=== PATIENT | female | born 1990 | race Caucasian/White ===

== ENCOUNTER 2020-01-11 02:16 | Inpatient (IN) | payer OTHER ==
--- OUTSIDE RECORDS SUMMARY | 2020-01-11 02:18 | XMS REPORT | Summary of Care ---
:1990 Author Organization [facility] Address [address] [place] [address] Care Team Providers Name Role Phone Doctor Unassigned, [place] Medicaid Hmo Unavailable Song Cacereschaden Mfm Unavailable Unavailable Cisco IzquierdoP Unavailable Encounter Details Date Type Department Care Team Description 06/02/2019 Orders Only [facility] Doctor Unassigned, No [address] [facility] Name [address] [address] Allergies No Known Allergiesdocumented as of this encounter (statuses as of 06/02/2019) Medications Medication Sig Dispensed Refills Start Date End Date Status hydroxyprogesterone Weekly IM inj 1 mL 0 12/16/2016 Active caproate, ppres, 250 starting at 16 mg/mL injection wk gestation proMETHazine 25 mg Take 1 tablet 12 tablet 0 05/07/2017 Active tabletIndications: High by mouth every risk , 6 (six) hours antepartum as needed for Nausea and Vomiting (N/V). proMETHazine 25 mg tablet Take 1 tablet 60 tablet 1 05/07/2017 Active by mouth every 4 (four) hours as needed (nausea). [id number] Take 2 tablets 60 Each 11 05/07/2017 Active carb,gnt-SK-ruu-dha by mouth daily. (CITRANATAL ASSURE) 35 mg Please fill iron-1 mg -50 mg-300 mg with similar combo packIndications: vitamin covered High risk , by patient's antepartum insurance. documented as of this encounter (statuses as of 06/02/2019) Active Problems Problem Noted Date Rh negative state in antepartum period 12/11/2016 High risk , antepartum 12/10/2016 Current with history of labor, second trimester 12/10/2016 Rh negative state in antepartum period, first trimester 12/10/2016 H/O cervical incompetence 12/10/2016 Recurrent loss, 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 History of anemia 10/30/2016 History of PID 10/30/2016 documented as of this encounter (statuses as of 06/02/2019) Resolved Problems Problem Noted Date Resolved Date Well woman exam with routine gynecological exam 10/30/2016 12/10/2016 Screening for STD (sexually transmitted disease) 10/30/2016 12/10/2016 Other general counseling and advice for contraceptive 10/30/2016 12/10/2016 management Threatened in early 07/18/2015 10/30/2016 Unsure of last menstrual period as reason for ultrasound 07/18/20152016 scan History of cervical incompetence in , currently 07/18/20152016 , first trimester Rh negative state in antepartum period, first trimester, 07/18/20152016 fetus 1 with other poor reproductive history 04/27/2014 10/30/2016 High-risk 04/27/2014 10/30/2016 History of delivery, currently 03/14/2014 10/30/2016 Overview: Delivered at 21 weeks Rh negative status during , antepartum 03/01/2014 07/18/2015 documented as of this encounter (statuses as of 06/02/2019) Immunizations Name Administration Dates Next Due Rho (d) Immune Globulin 05/28/2017 Td 04/18/2010 documented as of this encounter Social History Tobacco Use Types Packs/Day Years Used Date Former Smoker Cigarettes 0.1 1 Quit: 02/24/2014 Smokeless Tobacco: Never Used Comments: smokes 5 cigarettes per week Alcohol Use Drinks/Week oz/Week Comments No 0 Standard drinks or equivalent 0.0 Sex Assigned at Date Recorded Not on file Job Start Date Occupation Industry Not on file Not on file Not on file Travel History Travel Start Travel End No recent travel history available. documented as of this encounter Last Filed Vital Signs Not on filedocumented in this encounter Plan of Treatment Date Type Specialty Care Team Description 06/02/2019 Initial Visit OB Satellites Lamar Barry, STEREOPTIC PROJECTION TOPOGRAPHER [address] [place] [address] [phone] Health Maintenance Due Date Last Done Comments VARICELLA VACCINES (1 of 2 2001 - 13+ 2-dose series) DTaP,Tdap,and Td Vaccines 04/19/2010 04/18/2010 (1 - Tdap) INFLUENZA VACCINE (#1) 2019 PAP SMEAR 12/10/2019 12/10/2016, 12/28/2013, 10/03/2010, Additional history exists PNEUMOCOCCAL 0-64 YEARS Aged Out No longer eligible COMBINED SERIES based on patient's age to complete this topic documented as of this encounter Procedures Procedure Name Priority Date/Time Associated Diagnosis Comments ASSIGNMENT OF BENEFITS Routine 06/02/2019 8:50 AM CDT documented in this encounter Results Not on filedocumented in this encounter Advance Directives Name Relationship Healthcare Agent Relationship Communication Wan Héctor Garcia Primary healthcare agent Devonte Eng Other First alternate healthcare [phone] agent (Mobile)
--- OUTSIDE RECORDS SUMMARY | 2020-01-11 02:18 | XMS REPORT ---
:1990 Author Organization [facility] Address [address] [place] [address] Dr. Self. [address] [place] [address] Care Team Providers Name Role Phone Unavailable Unavailable Unavailable Problems This patient has no known problems. Allergies, Adverse Reactions, Alerts This patient has no known allergies or adverse reactions. Medications This patient has no known medications.
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
--- OUTSIDE RECORDS SUMMARY | 2020-01-11 02:19 | XMS REPORT | Summary of Care ---
:1990 Author Organization [facility] Address [address] [place] [address] Care Team Providers Name Role Phone Doctor Unassigned, [place] Medicaid Hmo Unavailable Faculty, Song [place] [facility] Unavailable Unavailable Cisco Izquierdo TRANSPORTATION ESCORT Unavailable Lamar Barry TRANSPORTATION ESCORT Primary Care Provider Reason for Referral (Routine) Status Reason Specialty Diagnoses / Referred By Referred To Procedures Contact Contact New Request Maternal Diagnoses High risk , antepartum Lamar Barry Procedures CONSULT MATERNAL MEDICINE ULTRASOUND Preferred Location: GRICEL Benavidez [address] [place] [address] Reason for Visit Reason Comments Assessment nausea and vomit Referral/consult referral for usg Encounter Details Date Type Department Care Team Description 06/09/2019 Telephone [facility]- Lamar Barry, Assessment ( nausea and Sasha COLONP vomit); [address] Referral/consult [place], [place] (referral for usg) [id number] [place], [place] [id number] Allergies No Known Allergiesdocumented as of this encounter (statuses as of 06/09/2019) Medications Medication Sig Dispensed Refills Start Date End Date Status proMETHazine 25 mg Take 1 tablet 30 tablet 3 06/09/2019 Active tabletIndications: by mouth every Nausea/vomiting in 4 (four) hours as needed for Nausea and Vomiting (N/V). PNV 67-iron Take 1 capsule 30 capsule 11 06/09/2019 Active ps-folate no.1-dha by mouth (VITAFOL ULTRA) 29 daily. mg iron- 1 mg-200 mg CapIndications: High risk , antepartum vit Take by 0 06/09/2019 Discontinued calc,iron,folic mouth. ( VITAMIN ORAL) documented as of this encounter (statuses as of 06/09/2019) Active Problems Problem Noted Date History of [...] as of this encounter (statuses as of 06/09/2019) Resolved Problems Problem Noted Date Resolved Date [...] as of this encounter (statuses as of 06/09/2019) Immunizations Name Administration Dates Next Due Rho (d) Immune Globulin 05/28/2017 Td 04/18/2010 documented as of this encounter Social History Tobacco Use Types Packs/Day Years Used Date Former Smoker Cigarettes 0.1 1 Quit: 02/24/2014 Smokeless Tobacco: Never Used Alcohol Use Drinks/Week oz/Week Comments No 0 [...] 06/30/2019 Routine Visit OB Satellites Lamar Barry, TRANSPORTATION ESCORT [address] [place] [address] [phone] Health Maintenance Due Date Last Done Comments INFLUENZA VACCINE (#1) 2019 DTaP,Tdap,and Td Vaccines 09/23/2019 04/18/2010 Postponed from (1 - Tdap) 04/19/2010 ( or ) PAP SMEAR 06/02/2022 06/02/2019, 12/10/2016, 12/28/2013, Additional history exists PNEUMOCOCCAL 0-64 YEARS Aged Out No longer eligible COMBINED SERIES based on patient's age to complete this topic documented as of this encounter Results Not on filedocumented in this encounter Visit Diagnoses Diagnosis High risk , antepartum - Primary Nausea/vomiting in Unspecified vomiting of , unspecified as to episode of care documented in this encounter Insurance Payer Benefit Plan / Subscriber ID Effective Dates Phone Address Type Group TMHP MEDICAID OF xxxxxxxxx 2019-Present [phone] [place] [address] [place] [address] documented as of this encounter Advance Directives Name Relationship Healthcare Agent Relationship Communication Wan Anaya Father Primary healthcare agent Devonte Eng Other [employer] alternate healthcare [phone] agent (Mobile)
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
--- OUTSIDE RECORDS SUMMARY | 2020-01-11 02:20 | XMS REPORT | Summary of Care ---
:1990 Author Organization [facility] Address [address] [place] [address] Care Team Providers Name Role Phone Doctor Unassigned, [employer] Medicaid Hmo Unavailable Faculty, Song [facility] [employer] Unavailable Unavailable Cisco Izquierdo BUFFET WAITER/WAITRESS Unavailable Lamar Barry BUFFET WAITER/WAITRESS Primary Care Provider Encounter Details Date Type Department Care Team Description 06/29/2019 Orders Only [facility] Doctor Unassigned, No [address] [facility] [place] [address] [address] [place] [address] Allergies No Known Allergiesdocumented as of this encounter (statuses as of 06/29/2019) Medications Medication Sig Dispensed Refills Start Date End Date Status proMETHazine 25 mg Take 1 tablet by 30 tablet 3 06/09/2019 Active tabletIndications: mouth every 4 Nausea/vomiting in (four) hours as needed for Nausea and Vomiting (N/V). PNV 67-iron ps-folate Take 1 capsule by 30 capsule 11 06/09/2019 Active no.1-dha (VITAFOL mouth daily. ULTRA) 29 mg iron- 1 mg-200 mg CapIndications: High risk , antepartum documented as of this encounter (statuses as of 06/29/2019) Active Problems Problem Noted Date History of [...] as of this encounter (statuses as of 06/29/2019) Resolved Problems Problem Noted Date Resolved Date [...] as of this encounter (statuses as of 06/29/2019) Immunizations Name Administration Dates Next Due Rho [...] 06/30/2019 Routine Visit OB Satellites Lamar Barry, BUFFET WAITER/WAITRESS [address] [place], [place] [address] Health Maintenance Due Date Last Done Comments [...] Procedure Name Priority Date/Time Associated Diagnosis Comments CONSENT/REFUSAL FOR Routine 06/29/2019 9:06 AM CDT DIAGNOSIS AND TREATMENT documented in this encounter Results Not on filedocumented in this encounter Insurance Payer Benefit Plan / Subscriber ID Effective Dates Phone Address Type Group TMHP MEDICAID OF xxxxxxxxx 2019-Present [phone] Medicaid [place] [id number] [place] [phone] documented as of this encounter Advance Directives Name Relationship Healthcare Agent Relationship Communication Wan Garcia Primary healthcare agent
--- OUTSIDE RECORDS SUMMARY | 2020-01-11 02:20 | XMS REPORT | Summary of Care ---
:1990 Author Organization [facility] Address [address] [place] [address] Care Team Providers Name Role Phone Doctor Unassigned, [place] Medicaid Hmo Unavailable Faculty, Song Rmchp Mfm Unavailable Unavailable Cisco Izquierdo CROP RESEARCH SCIENTIST Unavailable Lamar Barry CROP RESEARCH SCIENTIST Primary Care Provider Reason for Referral Radiology Services (OLI) Status Reason Specialty Diagnoses / Referred By Referred To Procedures Contact Contact New Request Diagnostic Diagnoses Abdominal pain affecting Geoffrey Goddard Radiology Procedures US TRANSVAGINAL III, PA [address] [place] [address] [place] [address] Radiology Services (OLI) Status Reason Specialty Diagnoses / Referred By Referred To Procedures Contact Contact New Request Diagnostic Diagnoses Abdominal pain affecting Geoffrey Goddard Radiology Procedures US TRANSVAGINAL III, PA [address] [place] [address] [place] [address] Reason for Visit Reason Comments CRAMPING Auth/Cert Status Reason Specialty Diagnoses / Referred By Referred To Procedures Contact Contact [facility] [address] [place] [address] [place] [address] Encounter Details Date Type Department Care Team Description 06/17/2019 Emergency [facility]-Emergency Rupesh, Geoffrey A III, Abdominal pain affecting (Primary Dx); Department PA Urinary tract infection without hematuria, site unspecified [address] [facility] [address] [place] [address] [facility] [place] [id number] Allergies No Known Allergiesdocumented as of this encounter (statuses as of 06/17/2019) Medications Medication Sig Dispensed Refills Start Date End Date Status proMETHazine 25 mg Take 1 tablet by 30 tablet 3 06/09/2019 Active tabletIndications: mouth every 4 Nausea/vomiting in (four) hours as needed for Nausea and Vomiting (N/V). PNV 67-iron ps-folate Take 1 capsule 30 capsule 11 06/09/2019 Active no.1-dha (VITAFOL by mouth daily. ULTRA) 29 mg iron- 1 mg-200 mg CapIndications: High risk , antepartum amoxicillin 500 mg Take 1 tablet by 30 tablet 0 06/17/2019 06/27/2019 Active tabletIndications: mouth 3 (three) Abdominal pain times daily for affecting , 10 days. Urinary tract infection without hematuria, site unspecified documented as of this encounter (statuses as of 06/17/2019) Active Problems Problem Noted Date History of [...] as of this encounter (statuses as of 06/17/2019) Resolved Problems Problem Noted Date Resolved Date [...] as of this encounter (statuses as of 06/17/2019) Immunizations Name Administration Dates Next Due Rho [...] Sign Reading Time Taken Comments Blood Pressure 110/65 06/17/2019 9:44 PM CDT Pulse 80 06/17/2019 9:44 PM CDT Temperature 37 C (98.6 F) 06/17/2019 9:44 PM CDT Respiratory Rate 16 06/17/2019 9:44 PM CDT Oxygen Saturation 98% 06/17/2019 9:44 PM CDT Inhaled Oxygen Concentration - - Weight 68 kg (150 lb) 06/17/2019 7:34 PM CDT Height - - Body Mass Index 24.96 06/02/2019 9:38 AM CDT documented in this encounter Discharge Instructions Geoffrey Cole III, PA - 06/17/2019 @@@@@@@@@@@@@@@@@@@@@@@@@@@@@@@@@@@@@@@@@@@@@@@@@@@@@ [facility] RETURN TO WORK / SCHOOL EXCUSE Bettye Anaya WAS SEEN IN THE ER AND DISCHARGED 06/17/2019 TODAY, 9:27 PM & May return to Work / School / Incarceration on 06/18/19 with No limitations unless indicated below. ___The following limitations apply until pt is seen by Physician and cleared to return to normal activity. ___ Light duty ___ No Sports ___ No work ___ Do not return until fever free for 24 hours. ___ No school Ed Rupesh [facility] [address] [place] [address] [place] [address] If you are unprepared to return to work tomorrow due to pain please give this note to your employer and make a follow up appointment with your MD for further evaluation and limitations. ### The patient may have been given Narcotic pain medications during their stay in the ED that may show up on a Drug Screen. The hospital discharge paper work will identify these medications. @@@@@@@@@@@@@@@@@@@@@@@@@@@@@@@@@@@@@@@@@@@@@@@@@@@@@ Thank you for trusting us with your care. The emergency room is the first stop in the medical management of your complaint . Our primary pupose is to identify life threatening emergancies and to rapidly address those issues. We are releasing you today after evaluation for emergency or life threatening problems related to your complaint. At this time we are comfortable that your condition is stable enough to go home, take oral medications and follow up for further care. If you can't afford a doctor OR MEDICATIONS consider [facility] [place], [address] [place] [address]; [phone] Medications [employer] WILL SHOW YOU WHERE YOU CAN GET YOUR MEDICATIONS CHEAPEST. 1. Call your doctor and let them know you were seen for ICD-10-CM ICD-9-CM 1. Abdominal pain affecting O26.899 646.80 R10.9 789.00 2. Urinary tract infection without hematuria, site unspecified N39.0 599.0 2. Schedule a follow up within 3 days of your ER visit. 3. Take your prescriptions to the pharmacy and get them filled today. 4. Take the medications as prescribed and until completed. 5. You have been referred for further care 6. You may need additional tests Your doctors will help you figure out what you need and how to get them done. 7. Please read all paperwork provided to you. Additional instructions See Attached AttachmentsThe following attachments cannot be sent through Care Everywhere.Urinary Tract Infections in Women (Chilean)documented in this encounter Plan of Treatment Date Type Specialty Care Team Description 06/27/2019 Healthcare Economics Consultant Visit Maternal Ansley, Shirley Matson MD [address] [facility] [id number] [place], [place] [id number] Medicine 5, [facility] Usg Room 06/30/2019 Routine Visit OB Satellites Lamar Barry, CROP RESEARCH SCIENTIST [address] [place] [address] [phone] Name Type Priority Associated Diagnoses Date/Time TOTAL BETA HCG ASSAY LAB STAT Abdominal pain affecting 06/17/2019 8:32 PM CDT Type and Screen - ONCE LAB STAT Abdominal pain affecting 06/17/2019 8:32 PM CDT STAT Name Type Priority Associated Diagnoses Order Schedule TOTAL BETA HCG ASSAY LAB STAT Abdominal pain affecting STAT for 1 Occurrences starting 06/17/2019 until 06/17/2019, 1 completed Health Maintenance Due Date Last Done Comments [...] Procedure Name Priority Date/Time Associated Comments Diagnosis CBC WITH DIFFERENTIAL STAT 06/17/2019 8:32 Abdominal pain Results for this PM CDT affecting procedure are in the results section. TYPE AND SCREEN STAT 06/17/2019 8:32 Abdominal pain PM CDT affecting URINALYSIS STAT 06/17/2019 8:32 Abdominal pain Results for this PM CDT affecting procedure are in the results section. CBC WITH DIFF Routine 06/17/2019 8:32 Abdominal pain Results for this PM CDT affecting procedure are in the results section. COMP. METABOLIC PANEL STAT 06/17/2019 8:32 Abdominal pain Results for this (33598) PM CDT affecting procedure are in the results section. US TRANSVAGINAL OLI 06/17/2019 8:27 Abdominal pain Results for this PM CDT affecting procedure are in the results section. NOTICE OF PRIVACY Routine 06/17/2019 7:18 PRACTICES PM CDT CONSENT/REFUSAL FOR Routine 06/17/2019 7:18 DIAGNOSIS AND PM CDT TREATMENT documented in this encounter Results CBC WITH DIFFERENTIAL (06/17/2019 8:32 PM CDT) WBC 9.06 4.30 - 11.10 [facility] 10*3/L HOSPITAL LABORATORY RBC 3.96 3.93 - 5.25 [facility] 10*6/L [facility] HGB 12.6 11.6 - 15.0 g/dL [facility] HCT 36.2 35.7 - 45.2 % [facility] MCV 91.4 80.6 - 95.5 fL [facility] MCH 31.8 25.9 - 32.8 pg [facility] MCHC 34.8 31.6 - 35.1 g/dL [facility] RDW-SD 41.2 39.0 - 49.9 fL [facility] RDW-CV 12.3 12.0 - 15.5 % [facility] PLT 220 166 - 358 [facility] 10*3/L HOSPITAL [facility] MPV 11.5 9.5 - 12.9 fL [facility] NRBC/100 WBC 0.0 0.0 - 10.0 /100 [facility] WBCs HOSPITAL LAB[facility]ORY NRBC x10^3 <0.01 10*3/L [facility] GRAN MAT (NEUT) % 67.6 % [facility] IMM GRAN % 0.30 % [facility] LYMPH % 22.6 % [facility] MONO % 7.5 % [facility] EOS % 1.4 % [facility] BASO % 0.6 % [facility] GRAN MAT x10^3(ANC) 6.12 1.88 - 7.09 [facility] 10*3/uL HOSPITAL LAB[facility]ORY IMM GRAN x10^3 0.03 0.00 - 0.06 [facility] 10*3/uL HOS[facility]ITAL [facility] LYMPH x10^3 2.05 1.32 - 3.29 [facility] 10*3/uL [facility]ITAL [facility] MONO x10^3 0.68 0.33 - 0.92 [facility] 10*3/uL H[facility]ITAL [facility] EOS x10^3 0.13 0.03 - 0.39 [facility] 10*3/uL [facility] BASO x10^3 0.05 0.01 - 0.07 [facility] 10*3/uL HOSPITAL LAB[facility]ORY Specimen Blood - ARM, RIGHT Performing Organization Address City/State/Zipcode Phone Number [facility] CLIA: [id number], [address] [place] [address] URINALYSIS (06/17/2019 8:32 PM CDT) APPEARANCE Clear Clear [facility] COLOR Yellow Yellow [facility] PH 7.0 4.8 - 8.0 [facility] SP GRAVITY 1.010 1.003 - 1.030 [facility] GLU U QUAL Negative Negative [facility] BLOOD Negative Negative [facility] KETONES Negative Negative [facility] PROTEIN Negative Negative [facility] UROBILIN 0.2 mg/dL 0-1.0 mg/dL [facility] BILIRUBIN Negative Negative [facility] NITRITE Negative Negative [facility] LEUK PEDRO Trace (A) Negative [facility] RBC/HPF 0 0 - 3 HPF [facility] WBC/HPF 2 0 - 5 HPF [facility] BACTERIA Moderate (A) Negative [facility] AMORPHOUS 3+ HPF [facility] SQ EPITH 8 HPF [facility] Specimen Urine - URINE, CLEAN CATCH Performing Organization Address City/State/Zipcode Phone Number [facility] CLIA: [id number], [address] [place] [address] COMP. METABOLIC PANEL ([id number]) (06/17/2019 8:32 PM CDT) NA 140 135 - 145 mmol/L [facility] K 3.6 3.5 - 5.0 mmol/L [facility] CL 104 98 - 108 mmol/L [facility] CO2 TOTAL 24 23 - 31 mmol/L [facility] AGAP 12 2 - 16 [facility] BUN 8 7 - 23 mg/dL [facility] GLUCOSE 78 70 - 110 mg/dL [facility] CREATININE 0.61 0.50 - 1.04 [facility] mg/dL [facility] TOTAL BILI 0.1 0.1 - 1.1 mg/dL [facility] CALCIUM 9.4 8.6 - 10.6 mg/dL [facility] T PROTEIN 7.5 6.3 - 8.2 g/dL [facility] ALBUMIN 4.5 3.5 - 5.0 g/dL [facility] ALK PHOS 51 34 - 122 U/L [facility] ALT(SGPT) 6 (L) 9 - 51 U/L [facility] AST(SGOT) 18 13 - 40 U/L [facility] eGFR Calculation 115.2 mL/min/1.73m2 [facility] (Non-) [facility] eGFR Calculation 139.6 mL/min/1.73m2 [facility] () [facility] Specimen Blood - ARM, RIGHT Narrative Performed At Association of Glomerular Filtration Rate (GFR) [facility] and Staging of Kidney Disease* + + +- + | GFR (mL/min/1.73 m2)| With Kidney Damage|Without Kidney Damage + + +- + |>90| Stage one| Normal + + +- + |60-89|S tage two| Decreased GFR + + +- + |30-59|S tage three| Stage three + + +- + |15-29|S tage four | Stage four + + +- + |<15 (or dialysis)|Stage five | Stage five + + +- + *Each stage assumes the associated GFR level has been in effect for at least three months.Stages 1 to 5, with or without kidney disease, indicate chronic kidney disease. Notes: Determination of stages one and two (with eGFR >59mL/min/1.73 m2) requires estimation of kidney damage for at least three months as defined by structural or functional abnormalities of the kidney, manifested by either: Pathological abnormalities or Markers of kidney damage (including abnormalities in the composition of the blood or urine or abnormalities in imaging tests). Performing Organization Address City/State/Zipcode Phone Number [facility] CLIA: [id number], [address] [place] [address] [facility] [address] US TRANSVAGINAL (06/17/2019 8:27 PM CDT) Specimen Impressions Performed At PACS/VR/DOSE Live intrauterine corresponding to a gestational age of 8 weeks and 4 days. IHyacinth MD., have reviewed this study and agree with the above report. Narrative Performed At EXAM: US TRANSVAGINAL PACS/VR/DOSE HISTORY:28 years-old Female presenting with suspected ectopic Beta-hcg: Pending LMP: 04/18/2019 Reproductive history: A0 COMPARISON:None. TECHNIQUE/FINDINGS: Transvaginal pelvic ultrasound was performed. The uterus is normal in size at 9.3 x 6.4 x 7.9 cm with normal echotexture and contains a normal gestational sac. A live intrauterine was demonstrated with a crown rump length of 1.9 cm corresponding to a gestational age of 8 weeks and 4 days. Doppler studies demonstrated evidence of heart tones with measured heart rate of 170 BPM. The yolk sac is present measuring 0.3 cm. Trace free fluid is present within the pelvis. The bilateral ovaries are normal with the right ovary measuring 2.9 x 2.5 x 2.1 cm (8 mL) and the left ovary measuring 2.5 x 1.9 x 1.3 cm (3 mL). Procedure Note [facility], Radiant Results Inft User - 06/17/2019 9:43 PM CDT EXAM: US TRANSVAGINAL HISTORY: 28 years-old Female presenting with suspected ectopic Beta-hcg: Pending LMP: 04/18/2019 Reproductive history: A0 COMPARISON: None. TECHNIQUE/FINDINGS: Transvaginal pelvic ultrasound was performed. The uterus is normal in size at 9.3 x 6.4 x 7.9 cm with normal echotexture and contains a normal gestational sac. A live intrauterine was demonstrated with a crown rump length of 1.9 cm corresponding to a gestational age of 8 weeks and 4 days. Doppler studies demonstrated evidence of heart tones with measured heart rate of 170 BPM. The yolk sac is present measuring 0.3 cm. Trace free fluid is present within the pelvis. The bilateral ovaries are normal with the right ovary measuring 2.9 x 2.5 x 2.1 cm (8 mL) and the left ovary measuring 2.5 x 1.9 x 1.3 cm (3 mL). IMPRESSION Live intrauterine corresponding to a gestational age of 8 weeks and 4 days. IHyacinth MD., have reviewed this study and agree with the above report. Performing Organization Address City[facility]State[facility] Phone Number PACS/VR/DOSE documented in this encounter Visit Diagnoses Diagnosis Abdominal pain affecting - Primary Urinary tract infection without hematuria, site unspecified documented in this encounter Administered Medications Medication Order MAR Action Action Date Dose Rate Site NaCl 0.9% (NS) bolus New Bag 06/17/2019 8:40 PM CDT 1,000 mL 999 mL/hr infusion 1,000 mL at 999 mL/hr, 1,000 mL, IV Infusion, ONCE, 1 dose, Thu06/17/19 at 2100, STAT documented in this encounter Insurance Payer Benefit Plan / Subscriber ID Effective Dates Phone Address Type Group TMHP MEDICAID OF xxxxxxxxx 2019-Present [phone] [address] Medicaid [place] [id number] [place] [phone] [address] Diaz (Home) [place] [address] documented as of this encounter Advance Directives Name Relationship Healthcare Agent Relationship Communication Wan Garcia Primary healthcare agent "
--- OUTSIDE RECORDS SUMMARY | 2020-01-11 02:20 | XMS REPORT | Summary of Care ---
:1990 Author Organization [facility] Address [address] [place] [address] Care Team Providers Name Role Phone Doctor Unassigned, [place] Medicaid Hmo Unavailable Faculty, Song Rmp [facility] Unavailable Unavailable Cisco Izquierdo GIFT MANAGER Unavailable Lamar Barry Primary Care Provider Reason for Visit Reason Comments ULTRASOUND (Routine) Status Reason Specialty Diagnoses / Referred By Referred To Procedures Contact Contact Authorized Maternal Diagnoses High risk , antepartum Lamar Barry Medicine Procedures CONSULT MATERNAL MEDICINE ULTRASOUND Preferred Location: [facility] [address] [place] [address] Encounter Details Date Type Department Care Team Description 06/27/2019 Academic Physician Visit [facility] Women's Ans[place]ir[place] MD Uterine size-date [facility] Marli Garcia MD [id number] [place] [address] discrepancy in first [facility] 5, [facility] Usg Room trimester 1005 Located Within [facility], 3rd [place] [address] Allergies No Known Allergiesdocumented as of this encounter (statuses as of 06/27/2019) Medications Medication Sig Dispensed Refills Start Date [...] as of this encounter (statuses as of 06/27/2019) Active Problems Problem Noted Date History of [...] as of this encounter (statuses as of 06/27/2019) Resolved Problems Problem Noted Date Resolved Date [...] as of this encounter (statuses as of 06/27/2019) Immunizations Name Administration Dates Next Due Rho [...] 06/30/2019 Routine Visit OB Satellites Lamar Barry, GIFT MANAGER [address] [place] [address] [phone] Health Maintenance Due Date Last Done Comments [...] filedocumented in this encounter Visit Diagnoses Diagnosis Uterine size-date discrepancy in first trimester Uterine size date discrepancy, antepartum condition or complication documented in this encounter Insurance Payer Benefit Plan / Subscriber ID Effective Dates Phone Address Type Group TMHP MEDICAID OF xxxxxxxxx 2019-Present [phone] [address] Medicaid [place] [id number] [place] [phone] [address] Diaz ([place]) [place] [address] documented as of this encounter Advance Directives Name Relationship Healthcare Agent Relationship Communication Wan Garcia Primary healthcare agent
--- OUTSIDE RECORDS SUMMARY | 2020-01-11 02:21 | XMS REPORT | Summary of Care ---
:1990 Author Organization [facility] Address [address] [place] [address] Care Team Providers Name Role Phone Doctor Unassigned, [place] Medicaid Hmo Unavailable Nicki, Song [facility] Unavailable Unavailable Cisco Izquierdo ART MUSEUM AIDE Unavailable Lamar Barry ART MUSEUM AIDE Primary Care Provider Reason for Visit Reason Comments Referral/consult Encounter Details Date Type Department Care Team Description 06/29/2019 Telephone [facility]- Lamar Barry, ART MUSEUM AIDE Referral/consult [facility] [address] [place] [address] [place], [place] [address] Allergies No Known Allergiesdocumented as of this [...] Dates Next Due Rho (d) Immune Globulin 06/29/2019, 05/28/2017 Td 04/18/2010 documented as of this [...] 06/30/2019 Routine Visit OB Satellites Lamar Barry, ART MUSEUM AIDE [address] [place] [address] [phone] Health Maintenance Due Date Last Done Comments [...] ID Effective Dates Phone Address Type Group [place] [facility] [place] [employer] xxxxxxxxx 2019-Present Medicaid HEALTH PLAN - HEALTH MANAGED MEDICAID documented as of this encounter Advance Directives Name Relationship Healthcare Agent Relationship Communication Wan Héctor Garcia Primary healthcare agent
--- OUTSIDE RECORDS SUMMARY | 2020-01-11 02:21 | XMS REPORT | Summary of Care ---
:1990 Author Organization [facility] Address [address] [place] [address] Care Team Providers Name Role Phone Doctor Unassigned, [place] Medicaid Hmo Unavailable Nicki, Song [facility] Unavailable Unavailable Cisco Izquierdo [facility] Unavailable Lamar Barry Primary Care Provider Reason for Visit Reason Comments Prescription Encounter Details Date Type Department Care Team Description 11/08/2019 Telephone [facility]- Lamar Arzola [facility] Prescription [address] [place] [address] [facility] [phone] [place] [address] Allergies No Known Allergiesdocumented as of this encounter (statuses as of 11/08/2019) Medications Medication Sig Dispensed Refills Start Date End Date Status PNV 67-iron ps-folate Take 1 capsule by 30 capsule 11 06/09/2019 Active no.1-dha (VITAFOL mouth daily. ULTRA) 29 mg iron- 1 mg-200 mg CapIndications: High risk , antepartum proMETHazine 25 mg Take 1 tablet by 30 tablet 3 09/05/2019 Active tabletIndications: mouth every 4 Nausea/vomiting in (four) hours as needed for Nausea and Vomiting (N/V). HYDROXYprogest,PF,,pre 0 10/10/2019 Active g presv, 250 mg/mL (1 mL) injection Hospital, Clinic, or Other Ordered Dose Route Frequency Start Date End Date Status Facility Administered Medication HYDROXYprogest(PF)(preg 250 mg IM QWEEKLY 09/19/2019 12/26/2019 Active presv) (RUIZ) 250 mg/mL (1 mL) injection 250 mg documented as of this encounter (statuses as of 11/08/2019) Active Problems Problem Noted Date Rh negative, antepartum 08/10/2019 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 , currently 06/02/2019 High risk , antepartum 12/10/2016 Current with history of pre-term labor in second trimester 2016 H/O cervical incompetence 12/10/2016 Recurrent loss, 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 History of PID 10/30/2016 demise, less than 22 weeks 05/17/2014 Estimated Date of Delivery Comments Yes 01/23/2020 Based on last menstrual period of 04/18/2019 (Approximate) documented as of this encounter (statuses as of 11/08/2019) Resolved Problems Problem Noted Date Resolved Date H/O delivery, currently , second trimester 07/28/20192018 Supervision of with other poor reproductive or 06/17/20172018 obstetric history, third trimester Preg care for patient w recurrent preg loss, third trimester 06/17/201706/02 Suprvsn of preg w history of pre-term labor, third trimester 06/17/201706/02 Rh negative state in antepartum period 12/11/2016 06/02/2019 Rh negative state in antepartum period, first trimester 12/10/2016 10/17/2019 Well woman exam with routine gynecological exam [...] as of this encounter (statuses as of 11/08/2019) Immunizations Name Administration Dates Next Due Rho (d) Immune Globulin 10/31/2019, 06/29/2019, 05/28/2017 TDAP (ADACEL) VACCINE 10/31/2019 Td 04/18/2010 documented as of this encounter [...] Treatment Date Type Specialty Care Team Description 11/14/2019 Routine Visit OB Satellites Lamar Barry, FLY FRAME TENDER [address] [place] [address] [phone] Health Maintenance Due Date Last Done Comments INFLUENZA VACCINE (#1) 2020 Postponed from 06/19/2019 (Refused) PAP SMEAR 06/02/2022 06/02/2019, 12/10/2016, 12/28/2013, Additional history exists DTaP,Tdap,and Td Vaccines 10/31/2029 10/31/2019, 04/18/2010 (2 - Td) PNEUMOCOCCAL 0-64 YEARS Aged Out No longer eligible COMBINED SERIES based on patient's age to complete this topic documented as of this encounter Results Not on filedocumented in this encounter Insurance Payer Benefit Plan / Subscriber ID Effective Phone Address Type Group [facility] xxxxxxxxx 2019- [place] Medicaid HEALTH CHOICE - HEALTH CHOICE ent [id number] MANAGED MEDICAID [place], [place] [phone] documented as of this encounter Advance Directives Name Relationship Healthcare Agent Relationship Communication Wan Garcia Primary healthcare agent
--- OUTSIDE RECORDS SUMMARY | 2020-01-11 02:21 | XMS REPORT | Summary of Care ---
:1990 Author Organization [facility] - [facility] Address [address] [place] [address] Care Team Providers Name Role Phone Doctor Unassigned, [place] Medicaid Hmo Unavailable Faculty, Ang Rmchp Mfm Unavailable Unavailable Cisco Izquierdo LIFTS AND CRANES INSPECTOR Unavailable Lamar Barry LIFTS AND CRANES INSPECTOR Primary Care Provider Reason for Referral Radiology Services (STAT) Status Reason Specialty Diagnoses / Referred By Referred To Procedures Contact Contact New Request Diagnostic Diagnoses Vaginal spotting Chase Love, Radiology Procedures US FIRST TRIMESTER LESS THAN 14 WEEKS WITH TRANSVAGINAL US TRANSVAGINAL [address] [place] [address] [address] [place] [address] Reason for Visit Reason Comments SPOTTING 10 wks UTI Auth/Cert Status Reason Specialty Diagnoses / Referred By Referred To Procedures Contact Contact Emergency Medicine Diagnoses 10 WKS PREG,BLEEDING ABD PAIN [facility] [address] [place] [address] Encounter Details Date Type Department Care Team Description 06/29/2019 Emergency [facility]-Emergency Chase Love MD Vaginal spotting (Primary Dx); Department [address] [facility] Threatened miscarriage [address] [place] [address] [place] [id number] [phone] Allergies No Known Allergiesdocumented as of this [...] Sign Reading Time Taken Comments Blood Pressure 112/55 06/29/2019 11:15 AM CDT Pulse 92 06/29/2019 11:15 AM CDT Temperature 36.4 C (97.5 F) 06/29/2019 9:15 AM CDT Respiratory Rate 18 06/29/2019 11:15 AM CDT Oxygen Saturation 96% 06/29/2019 11:15 AM CDT Inhaled Oxygen Concentration - - Weight 68 kg (150 lb) 06/29/2019 9:15 AM CDT Height 165.1 cm (5' 5") 06/29/2019 9:15 AM CDT Body Mass Index 24.96 06/29/2019 9:15 AM CDT documented in this encounter Discharge Instructions InstructionsNeChase torre MD - 06/29/2019 RETURN FOR ANY QUESTIONS OR CONCERNS Today you were seen by Chase Love Jr., MD You were seen today for Chief Complaint Patient presents with SPOTTING 10 wks UTI Your ER diagnosis was ICD-10-CM ICD-9-CM 1. Vaginal spotting N93.9 623.8 2. Threatened miscarriage O20.0 640.00 NO LIFE-THREATENING FINDINGS ON TODAY'S EXAM. YOUR PRESCRIPTIONS : Check out [employer] for medication discounts Medication List ASK your doctor about these medications PNV 67-iron ps-folate no.1-dha 29 mg iron- 1 mg-200 mg Cap Commonly known as: VITAFOL ULTRA Take 1 capsule by mouth daily. proMETHazine 25 mg tablet Commonly known as: PHENERGAN Take 1 tablet by mouth every 4 (four) hours as needed for Nausea and Vomiting (N /V). ER precautions and follow up : 1. Return to ER if your symptoms should worsen or fail to improve within 72 hours. 2. The care provided in the emergency room was for acute problems only. 3. You should follow up with your primary care provider within 72 hours. 4. Fill and take all your medications as prescribed. 5. Make sure you are staying adequately hydrated. Busque attencion immediatamente si usted tiene los sitomas sigue, vuelve peor o si hay sitomas nuevas o para cualquiera preoccupacion incluyendo dolor del pecho , falta aire, se siente debile, mas fievre, mas dolor, nausea, vomitando, sangrando que no es normal, confusion, baja or pierdas conciencia. MAY FOLLOW-UP WITH A PROVIDER OF YOUR CHOICE, SUCH : 1. A PHYSICIAN OF YOUR CHOICE 2. [facility], . LOCATIONS IN [facility] 3. [facility], [address] [place] [address]; OR, IF YOU WISH TO FOLLOW-UP WITHIN THE [facility], MAY TRY THESE OPTIONS (CLINIC APPOINTMENTS AVAILABLE ON [id number] BASIS): 1. SCHEDULE AN APPOINTMENT ONLINE AT WWW.[facility] 2. OR CALL THE [facility]ENTER AT OR 3. OR CALL YOUR [facility] PHYSICIAN'S OFFICE DIRECTLY IF YOU ARE ALREADY AN ESTABLISHED [facility] PATIENT. [facility] HEALTH RETURN TO WORK / SCHOOL EXCUSE Bettye Anaya WAS SEEN IN THE ER AND DISCHARGED 06/29/2019 TODAY, 11:42 AM & May return to Work / School / Incarceration on X with activity as tolerated indicated below. ___The following limitations apply until pt is seen by Physician and cleared to return to normal activity. _X_ Off for two days and return to activity as tolerated at work or school ___ No Sports ___ No work ___ Do not return until fever free for 24 hours. ___ No school CHASE LOVE Jr., MD [facility] EMERGENCY DEPRTMENT [address] [place] [address] [place] [address] ### The patient may have been given Narcotic pain medications during their stay in the ED that may show up on a Drug Screen. The hospital discharge paper work will identify these medications. AttachmentsThe following attachments cannot be sent through Care Everywhere.Possible Miscarriage (Threatened ) (Somali)documented in this encounter Plan of Treatment Date Type Specialty Care Team Description 06/30/2019 Routine Visit OB Satellites Lamar Barry, LIFTS AND CRANES INSPECTOR [address] [address] [phone] Health Maintenance Due Date Last Done Comments [...] Procedure Name Priority Date/Time Associated Comments Diagnosis US FIRST STAT 06/29/2019 11:06 Vaginal spotting Results for this TRIMESTER LESS THAN AM CDT procedure are in 14 WEEKS WITH the results TRANSVAGINAL section. RHO (D) IMMUNE Routine 06/29/2019 9:50 Vaginal spotting Results for this GLOBULIN AM CDT procedure are in the results section. TYPE AND SCREEN STAT 06/29/2019 9:50 Vaginal spotting Results for this AM CDT procedure are in the results section. RH IMMUNE GLOBULIN Routine 06/29/2019 9:50 Results for this REQUIRED? AM CDT procedure are in the results section. URINALYSIS STAT 06/29/2019 9:17 Vaginal spotting Results for this AM CDT procedure are in the results section. NOTICE OF PRIVACY Routine 06/29/2019 9:06 PRACTICES AM CDT documented in this encounter Results US FIRST TRIMESTER LESS THAN 14 WEEKS WITH TRANSVAGINAL (06/29/2019 11 :06 AM CDT) Specimen Narrative Performed At HISTORY: Vaginal bleeding. Rule out demise. PACS/VR/DOSE TECHNIQUE: Both transabdominal and transvaginal pelvic ultrasound studies were completed by the technologist. FINDINGS: Comparison is made with recent ultrasound study of 06/17/2019. Single live IUP of 9 weeks and 6 days size confirmed by CRL measurement of 31.82 mm and mean sac diameter of 3.87 cm. A yolk sac, pole and cardiac activity visualized with heart rate recorded at 170 BPM. Right ovary is 3.4 x 2.4 x 2.4 cm (11.08 ml) and left ovary is 2.9 x 1.3 x 2.4 cm (5.07 ml). Right ovary contains a 1.8 cm size corpus luteum hemorrhagicum. CONCLUSIONS: 1. 1.8 x 1.1 cm subchorionic hemorrhage noted along the lower left side of the gestational sac. 2. Single live IUP of 9 weeks and 6 days size confirmed with heart rate of 170 BPM recorded. Procedure Note [facility], Radiant Results Inft User - 06/29/2019 11:11 AM CDT HISTORY: Vaginal bleeding. Rule out demise. TECHNIQUE: Both transabdominal and transvaginal pelvic ultrasound studies were completed by the technologist. FINDINGS: Comparison is made with recent ultrasound study of 06/17/2019. Single live IUP of 9 weeks and 6 days size confirmed by CRL measurement of 31.82 mm and mean sac diameter of 3.87 cm. A yolk sac, pole and cardiac activity visualized with heart rate recorded at 170 BPM. Right ovary is 3.4 x 2.4 x 2.4 cm (11.08 ml) and left ovary is 2.9 x 1.3 x 2.4 cm (5.07 ml). Right ovary contains a 1.8 cm size corpus luteum hemorrhagicum. CONCLUSIONS: 1. 1.8 x 1.1 cm subchorionic hemorrhage noted along the lower left side of the gestational sac. 2. Single live IUP of 9 weeks and 6 days size confirmed with heart rate of 170 BPM recorded. Performing Organization Address City/State/Zipcode Phone Number PACS/VR/DOSE RH IMMUNE GLOBULIN REQUIRED? (06/29/2019 9:50 AM CDT) Pathologist [facility] RHIG REQUIRED? 1 Syringe LAB Comment: Performed at [facility] Laboratory [facility] Blood Bank [address] [place] [address] Toll Free: [phone] CLIA No. [id number] Specimen Performing Organization Address City/[facility]/Zipcode Phone Number BLD LAB Type and Screen - ONCE STAT (06/29/2019 9:50 AM CDT) [facility] ABO & RH O Negative LAB Comment: Performed at [facility] Blood Bank [address] [place] [address] Toll Free: [phone] CLIA No. [id number] IAT Negative LAB Comment: Performed at [facility] Blood Bank [address] [place] [address] Toll Free: [phone] CLIA No. [id number] Specimen Blood - VENOUS Performing Organization Address [facility] Phone Number BLD LAB RHO (D) IMMUNE GLOBULIN (06/29/2019 9:50 AM CDT) [facility] RHIG CANDIDATE? Yes- see comment (A) LAB Comment: Sandra is a candidate for RhIg- Paitient is Rh Negative and currently . Performed at [facility] Laboratory [facility] Blood Bank [address] [place] [address] Toll Free: [phone] CLIA No. [id number] Specimen Blood - VENOUS Performing Organization Address City/[facility]/Zipcode Phone Number BLD LAB Urinalysis (06/29/2019 9:17 AM CDT) Pathologist [facility] APPEARANCE Clear Clear [facility]OR[facility] COLOR Yellow Yellow [facility] PH 6.5 4.8 - 8.0 [facility] SP GRAVITY 1.020 1.003 - 1.030 [facility] GLU U QUAL Negative Negative [facility] BLOOD Trace (A) Negative [facility] KETONES Negative Negative [facility] PROTEIN Negative Negative [facility] UROBILIN 0.2 mg/dL 0-1.0 mg/dL [facility] BILIRUBIN Negative Negative [facility] NITRITE Negative Negative [facility] LEUK PEDRO Negative Negative [facility] RBC/HPF 0 0 - 3 HPF [facility] WBC/HPF 2 0 - 5 HPF [facility] BACTERIA Few (A) Negative [facility] MUCOUS Slight (A) Negative LPF [facility] SQ EPITH 2 HPF [facility] Specimen Urine - URINE, CLEAN CATCH Performing Organization Address City/State/[facility] Phone Number [facility] CLIA: [id number], [address] [place] [address] documented in this encounter Visit Diagnoses Diagnosis Vaginal spotting - Primary Other specified noninflammatory disorder of vagina Threatened miscarriage Threatened , unspecified as to episode of care documented in this encounter Administered Medications Medication Order MAR Action Action Date Dose Rate Site rho(D) immune globulin (RHOGAM) syringe 300 mcg 300 mcg, Intramuscular, ONCE, For 1 dose, Conditional, Routine Medication Order MAR Action Action Date Dose Rate Site metoclopramide HCl (REGLAN) Given 06/29/2019 11:42 AM CDT 10 mg injection 10 mg 10 mg, Slow IV Push, ONCE, 1 dose, Thu06/29/19 at 1245, OLI documented in this encounter Insurance Payer Benefit Plan / Subscriber ID Effective Dates Phone Address Type Group [facility] xxxxxxxxx 2019-Present Medicaid HEALTH PLAN - HEALTH MANAGED MEDICAID [address]. [address] (Home) [place] [address] documented as of this encounter Advance Directives Name Relationship Healthcare Agent Relationship Communication Wan Garcia Primary healthcare agent
--- OUTSIDE RECORDS SUMMARY | 2020-01-11 02:21 | XMS REPORT | Summary of Care ---
:1990 Author Organization [facility] Address [address] [place] [address] Care Team Providers Name Role Phone Doctor Unassigned, [place] Medicaid Hmo Unavailable Nicki, Song [place] [facility] Unavailable Unavailable Cisco Izquierdo [facility] Unavailable Lamar Barry Primary Care Provider Reason for Visit Reason Comments NURSE VISIT Encounter Details Date Type Department Care Team Description 11/25/2019 Nurse Visit [facility]- Lamar Barry, STERILIZATION TECH [address] [place] [address] [facility] of [place] [facility], [facility] (Primary Dx) [address] [place] [address] Allergies No Known Allergiesdocumented as of this encounter (statuses as of 11/25/2019) Medications Medication Sig Dispensed Refills Start Date [...] as of this encounter (statuses as of 11/25/2019) Active Problems Problem Noted Date 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, antepartum 08/10/2019 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 , currently 06/02/2019 High risk , antepartum 12/10/2016 Current with history of pre-term labor in third trimester 12/10/2016 H/O cervical incompetence 12/10/2016 Recurrent loss, 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 History of PID 10/30/2016 demise, less than 22 weeks 05/17/2014 Estimated Date of Delivery Comments Yes 01/23/2020 Based on last menstrual period of 04/18/2019 (Approximate) documented as of this encounter (statuses as of 11/25/2019) Resolved Problems Problem Noted Date Resolved Date [...] as of this encounter (statuses as of 11/25/2019) Immunizations Name Administration Dates Next Due Rho [...] Sign Reading Time Taken Comments Blood Pressure 105/70 11/25/2019 10:13 AM ASTROPHYSICS TEACHER Pulse 106 11/25/2019 10:13 AM ASTROPHYSICS TEACHER Temperature 37.1 C (98.8 F) 11/25/2019 10:13 AM ASTROPHYSICS TEACHER Respiratory Rate 16 11/25/2019 10:13 AM ASTROPHYSICS TEACHER Oxygen Saturation - - Inhaled Oxygen Concentration - - Weight 74.6 kg (164 lb 6 oz) 11/25/2019 10:13 AM ASTROPHYSICS TEACHER Height 165.1 cm (5' 5") 11/25/2019 10:13 AM ASTROPHYSICS TEACHER Body Mass Index 27.35 11/25/2019 10:13 AM ASTROPHYSICS TEACHER documented in this encounter Patient Instructions Patient InstructionsRossana Perez LVN - 11/25/2019 10:00 AM ASTROPHYSICS TEACHER Hydroxyprogesterone solution for injection Brand Name: Ruiz What is this medicine? HYDROXYPROGESTERONE (chery drox ee proe AMILCAR ter one) is a female hormone. This medicine is used in women who are and who have delivered a baby too early () in the past. It helps lower therisk of having a baby again. This medicine is also used to treat irregular menstrual bleeding or a lack of menstrual bleeding in women. In some cases, it may be used to treat endometrial cancer. How should I use this medicine? This medicine is for injection into a muscle or under the skin. It is given by a health healthcare administration internship in a hospital or clinic setting. Talk to your assembly room supervisor regarding the use of this medicine in children. Special care may be needed. What side effects may I notice from receiving this medicine? Side effects that you should report to your doctor or health healthcare administration internship as soon as possible: allergic reactions like skin rash, itching or hives, swelling of the face, lips, or tongue breathing problems depressed mood increase in blood pressure increased hunger or thirst increased urination signs and symptoms of a blood clot such as breathing problems; changes in vision; chest pain; severe, sudden headache; pain, swelling, warmth in the leg; trouble speaking; sudden numbness or weakness of the face, arm or leg unusually weak or tired unusual vaginal bleeding yellowing of the eyes or skin Side effects that usually do not require medical attention (report to your doctor or health healthcare administration internship if they continue or are bothersome): diarrhea fluid retention and swelling nausea pain, redness, or irritation at site where injected What may interact with this medicine? Significant interactions are not expected. What if I miss a dose? It is important not to miss your dose. Call your doctor or health healthcare administration internship if you are unable to keep an appointment. Where should I keep my medicine? This drug is given in a hospital or clinic and will not be stored at home. What should I tell my health care provider before I take this medicine? They need to know if you have any of these conditions: breast, cervical, uterine, or vaginal cancer depression diabetes or prediabetes heart disease high blood pressure history of blood clots kidney disease liver disease lung or breathing disease, like asthma migraine headaches seizures vaginal bleeding an unusual or allergic reaction to hydroxyprogesterone, other hormones, castor oil, other medicines, foods, dyes, or preservatives breast-feeding What should I watch for while using this medicine? Your condition will be monitored carefully while you are receiving this medicine. NOTE:This sheet is a summary. It may not cover all possible information. If you have questions aboutthis medicine, talk to your doctor, pharmacist, or health care provider. Copyright 2018 [employer] OPHYSICS TEACHER documented in this encounter Progress Notes Rossana Perez LVN - 11/25/2019 10:00 AM CST29 year old female in clinic today for Ruiz progesterone injection. 250 mg administered IM to leftgluteus- see MAR entry. Witnessed by Iwona Fitzgerald RN. Medication supplied by outside pharmacy. Pt tolerated injection well, warning signs discussed with her at this time. Pt instructed to RTC 1 wk for next dose or PRN. Pt verbalized understanding. Rossana Rubio LVN 11/25/2019 10:33 AM documented in this encounter Plan of Treatment Date Type Specialty Care Team Description 12/02/2019 Routine Visit OB Satellites Lamar Barry, STERILIZATION TECH [address] [place] [address] [phone] Health Maintenance Due Date Last Done Comments [...] filedocumented in this encounter Visit Diagnoses Diagnosis History of labor - Primary Personal history of pre-term labor documented in this encounter Administered Medications Medication Order MAR Action Action Date Dose Rate Site HYDROXYprogest(PF)(preg Given 11/25/2019 10:33 AM 250 mg Left Upper Quad. presv) (RUIZ) 250 ASTROPHYSICS TEACHER Gluteus mg/mL (1 mL) injection 250 mg 250 mg, Intramuscular, QWEEKLY, 14 doses, First dose on 09/19/19 at 1200, Last dose on Thu12/19/19 at 1200, Routine Given 11/18/2019 9:30 AM ASTROPHYSICS TEACHER 250 mg Right Dorsogluteal-IM Given 11/11/2019 2:50 PM ASTROPHYSICS TEACHER 250 mg Left Upper Quad. Gluteus documented in this encounter Insurance Payer Benefit Plan / Subscriber ID Effective Phone Address Type Group [facility] xxxxxxxxx 2019-Pres [address] Medicaid HEALTH CHOICE - HEALTH CHOICE [facility] [id number] MANAGED MEDICAID [place], [place] MEDICAID [id number] [address] (Home) [place] [address] documented as of this encounter Advance Directives Name Relationship Healthcare Agent Relationship Communication Wan Garcia Primary healthcare agent
--- OUTSIDE RECORDS SUMMARY | 2020-01-11 02:22 | XMS REPORT | Summary of Care ---
:1990 Author Organization [facility] Address [address] [place] [address] Care Team Providers Name Role Phone Doctor Unassigned, [place] Medicaid Hmo Unavailable Nicki, Song [facility] Unavailable Unavailable Cisco Izquierdo TRIAGE CLINICIAN Unavailable Lamar Barry Primary Care Provider Reason for Visit Reason Comments Care Encounter Details Date Type Department Care Team Description 12/02/2019 Routine [facility]- Lamar Barry High-risk in third trimester (Primary Dx); Visit GRICEL Benavidez Rh negative, antepartum; [address] Current with history of pre-term labor in third trimester [place], [place] [address] [place], [place] [phone] Allergies No Known Allergiesdocumented as of this encounter (statuses as of 12/02/2019) Medications Medication Sig Dispensed Refills Start Date [...] mg IM QWEEKLY 09/19/2019 12/26/2019 Active presv) (MARY) 250 mg/mL (1 mL) injection 250 mg documented as of this encounter (statuses as of 12/02/2019) Active Problems Problem Noted Date Rh negative, [...] as of this encounter (statuses as of 12/02/2019) Resolved Problems Problem Noted Date Resolved Date [...] as of this encounter (statuses as of 12/02/2019) Immunizations Name Administration Dates Next Due Rho [...] Sign Reading Time Taken Comments Blood Pressure 111/68 12/02/2019 9:08 AM WRAPPING MACHINE HELPER Pulse 86 12/02/2019 9:08 AM WRAPPING MACHINE HELPER Temperature 36.7 C (98.1 F) 12/02/2019 9:08 AM WRAPPING MACHINE HELPER Respiratory Rate 16 12/02/2019 9:08 AM WRAPPING MACHINE HELPER Oxygen Saturation - - Inhaled Oxygen Concentration - - Weight 75.1 kg (165 lb 8 oz) 12/02/2019 9:08 AM WRAPPING MACHINE HELPER Height 165.1 cm (5' 5") 12/02/2019 9:08 AM WRAPPING MACHINE HELPER Body Mass Index 27.54 12/02/2019 9:08 AM WRAPPING MACHINE HELPER documented in this encounter Patient Instructions Patient InstructionsRossana Perez LVN - 12/02/2019 8:30 AM WRAPPING MACHINE HELPER Hydroxyprogesterone solution for injection Brand Name: Mary What is this medicine? HYDROXYPROGESTERONE (chery drox [...] skin. It is given by a health care aide in a hospital or clinic setting. Talk to your facilities maintenance technician regarding the use of this medicine in children. Special care may be needed. What side effects may I notice from receiving this medicine? Side effects that you should report to your doctor or health care aide as soon as possible: allergic reactions like [...] attention (report to your doctor or health care aide if they continue or are bothersome): diarrhea fluid retention and swelling nausea pain, redness, or irritation at site where injected What may interact with this medicine? Significant interactions are not expected. What if I miss a dose? It is important not to miss your dose. Call your doctor or health care aide if you are unable to keep an [...] or health care provider. Copyright 2018 Elsevier PING MACHINE HELPER documented in this encounter Progress Notes Rossana Perez LVN - 12/02/2019 8:30 AM CST29 year old female in clinic today for [place] progesterone injection. 250 mg administered IM to right gluteus - see MAR entry. Witnessed by Iwona Fitzgerald RN. Medication supplied by outside pharmacy. Pt tolerated injection well, warning signs discussed with her at this time. Pt instructed to RTC 1 wkfor next dose or PRN. Pt verbalized understanding. Rossana Rubio LVN 12/02/2019 9:26 AM Lamar Moe FNP - 12/02/2019 8:30 AM CST Chief complaint: Chief Complaint Patient presents with Care HPI Bettye Anaya is a 29 year old female is a @ w4d here for visit. Patient's last menstrual period was 04/18/2019 (approximate). Estimated Date of Delivery: 01/23/20 Today she denies any complaints or concerns. She is taking PNV. She reports good FM. She denies any ctx/cramping, VB, LOF, PADILLA , visual disturbance, vaginal discharge or dysuria. She denies any foreign travel. She also denies any physical, sexual or emotional abuse. Histories OB History Para Term AB Living 6 3 0 2 2 1 SAB TAB Ectopic Multiple Live Births 1 1 0 0 2 # Outcome Date GA Lbr Yonis/2nd Weight Sex Delivery Anes PTL Lv 6 Current 5 06/17/17 31w6d 3 lb 11 oz (1.673 kg) F NORMAL SPONT KRZYSZTOF 4 SAB 04/18/15 11w0d 3 Para 05/18/14 17w0d Vag-Spont FD 2 TAB 01/21/08 11w0d 1 11/29/04 21w0d [...] 2007 Social History Socioeconomic History Marital status: Spouse name: Not on file Number of [...] Last attempt to quit: 02/24/2014 Years since quittin.7 Smokeless tobacco: Never Used Substance and Sexual Activity Alcohol use: No Alcohol/week: 0.0 standard drinks Drug use: No Sexual activity: Yes Partners: Male control/protection: None Comment: last sexual intercourse 05/25/2019 Lifestyle Physical activity: Days per week: Not on file Minutes per session: Not on file Stress: Not on file Relationships Social connections: Talks on phone: Not on file Gets together: Not on file Attends restoration service: Not on file Active member of [...] or abuse No exposure to cats No restoration preference Patient lives with father and child. Social History Substance and Sexual Activity Sexual Activity Yes Partners: Male control/protection: None Comment: last sexual intercourse 05/25/2019 Labs No new labs and I have reviewed the patient's labs. Radiology No new radiology. Allergies Bettye has No Known Allergies. Medications Bettye has a current medication list which includes the following prescription(s): hydroxyprogest(pf)(preg presv), promethazine, and pnv 67-iron ps-folate no.1-dha, and the following Facility-Administered Medications: hydroxyprogest(pf)(preg presv). Review of Systems Constitutional: Negative for appetite change, fatigue and fever. Eyes: Negative for visual disturbance. Respiratory: Negative. Cardiovascular: Negative for palpitations and leg swelling. Gastrointestinal: Negative for abdominal pain, constipation, diarrhea, nausea and vomiting. Genitourinary: Negative. Negative for dysuria, vaginal bleeding, vaginal discharge and pelvic pain. Musculoskeletal: Negative. Skin: Negative for rash. Neurological: Negative for dizziness, light-headedness and headaches. Psychiatric/Behavioral: Negative. BP 111/68 (BP Location: Right arm, Patient Position: Sitting, BP CUFF SIZE: Adult Medium) | Pulse 86 | Temp 36.7 C (98.1 F) (Oral) | Resp 16 | Ht 5 ' 5" (1.651 m) | Wt 165 lb 8 oz (75.1 kg) | LMP 04/18/2019 (Approximate) | BMI 27.54 kg/m Pregravid BMI: 24.6 Physical Exam Vitals reviewed. Constitutional: She is oriented to person, place, and time. She appears well- developed and well-nourished. See flowsheet Cardiovascular: No peripheral edema present. Pulmonary/Chest: Normal inspiratory effort. Abdominal: Abdomen is soft. Neuro/Psychiatric: She has a normal mood and affect. She is oriented to person, place, and time. Skin: Skin normal. Assessment/Plan 1. High-risk in third trimester 32w4d Labor precautions, FKC and PIH warnings reviewed. - POCT URINALYSIS W/O SPECIFIC GRAVITY 2. Rh negative, antepartum Rhogam given 10/31/19, repeat PP PRN 3. Current with history of pre-term labor in third trimester Weekly mary injections until 36 weeks Denies s/s PTL Return to clinic in 1 weeks. Reviewed patient instructions and provided printed copy. at 32w4d This visit did not involve counseling and coordination that comprised more than 50% of the visit time. documented in this encounter Plan of Treatment Date Type Specialty Care Team Description 12/09/2019 [facility]/16/2019 Routine Visit OB Satellites Lamar Barry FNP [address] [place], [place] [phone] Health Maintenance Due Date Last Done Comments [...] Associated Comments Diagnosis POCT URINALYSIS W/O Routine 12/02/2019 9:12 AM High-risk Results for this SPECIFIC GRAVITY WRAPPING MACHINE HELPER in third trimester procedure are in the results section. POCT URINALYSIS W/O Routine 12/02/2019 9:11 AM High-risk Results for this SPECIFIC GRAVITY WRAPPING MACHINE HELPER in third trimester procedure are in the results section. documented in this encounter Results POCT URINALYSIS W/O SPECIFIC GRAVITY (12/02/2019 9:12 AM WRAPPING MACHINE HELPER) POCT PH U .Comment: error 5 - 8 mg/dl POCT U LEUK EST . Negative - Negative POCT U NIT . Negative - Negative POCT U PROT . Negative - Negative POCT U GLU . Negative - Negative POCT U KETONE . Negative - Negative POCT U BLD . Negative - Negative Specimen Urine - URINE, CLEAN CATCH POCT URINALYSIS W/O SPECIFIC GRAVITY (12/02/2019 9:11 AM WRAPPING MACHINE HELPER) POCT PH U . 5 - 8 mg/dl POCT U LEUK EST . Negative - Negative POCT U NIT . Negative - Negative POCT U PROT trace Negative - Negative POCT U GLU neg Negative - Negative POCT U KETONE . Negative - Negative POCT U BLD . Negative - Negative Specimen Urine - URINE, CLEAN CATCH documented in this encounter Visit Diagnoses Diagnosis High-risk in third trimester - Primary Rh negative, antepartum Rhesus isoimmunization affecting management of mother, antepartum condition Current with history of pre-term labor in third trimester documented in this encounter Administered Medications Medication Order MAR Action Action Date Dose Rate Site HYDROXYprogest(PF)(preg Given 12/02/2019 9:27 AM 250 mg Right Upper Quad. presv) (MARY) 250 WRAPPING MACHINE HELPER Gluteus mg/mL (1 mL) injection 250 mg 250 mg, Intramuscular, QWEEKLY, 14 doses, First dose on Thu09/19/19 at 1200, Last dose on Thu12/19/19 at 1200, Routine Given 11/25/2019 10:33 AM WRAPPING MACHINE HELPER 250 mg Left Upper Quad. Gluteus Given 11/18/2019 9:30 AM WRAPPING MACHINE HELPER 250 mg Right Dorsogluteal-IM documented in this encounter Insurance Payer Benefit Plan / Subscriber ID Effective Phone Address Type Group [facility] xxxxxxxxx 2019-Pres [address] Medicaid HEALTH CHOICE - HEALTH CHOICE ent [id number] MANAGED MEDICAID [place], [place] MEDICAID [phone] [address] (Home) [place] [address] documented as of this encounter Advance Directives Name Relationship Healthcare Agent Relationship Communication Wan Garcia Primary healthcare agent
--- OUTSIDE RECORDS SUMMARY | 2020-01-11 02:22 | XMS REPORT | Summary of Care ---
:1990 Author Organization [facility] Address [address] [place] [address] Care Team Providers Name Role Phone Doctor Unassigned, [place] Medicaid Hmo Unavailable Nicki, Song [facility] Unavailable Unavailable Cisco Izquierdo MIXER FOAM RUBBER Unavailable Lamar Barry Primary Care Provider Reason for Visit Reason Comments Care Encounter Details Date Type Department Care Team Description 12/02/[address] [facility]- Lamar Barry High-risk in third trimester (Primary Dx); Visit GRICEL Benavidez Rh negative, antepartum; [address] Current with history of pre-term labor in third trimester [place], [place] [address] [place], [place] [phone] [address] Allergies No Known Allergiesdocumented as of [...] Comments Blood Pressure 111/68 12/02/2019 9:08 AM BRIQUETTE MOLDER Pulse 86 12/02/2019 9:08 AM BRIQUETTE MOLDER Temperature 36.7 C (98.1 F) 12/02/2019 9:08 AM BRIQUETTE MOLDER Respiratory Rate 16 12/02/2019 9:08 AM BRIQUETTE MOLDER Oxygen Saturation - - Inhaled Oxygen Concentration - - Weight 75.1 kg (165 lb 8 oz) 12/02/2019 9:08 AM BRIQUETTE MOLDER Height 165.1 cm (5' 5") 12/02/2019 9:08 AM BRIQUETTE MOLDER Body Mass Index 27.54 12/02/2019 9:08 AM BRIQUETTE MOLDER documented in this encounter Patient Instructions Patient InstructionsRossana Perez LVN - 12/02/2019 8:30 AM BRIQUETTE MOLDER Hydroxyprogesterone solution for injection Brand Name: Mary [...] skin. It is given by a health date night caregiver in a hospital or clinic setting. Talk to your carpet repairer regarding the use of this medicine in children. Special care may be needed. What side effects may I notice from receiving this medicine? Side effects that you should report to your doctor or health date night caregiver as soon as possible: allergic reactions like [...] attention (report to your doctor or health date night caregiver if they continue or are bothersome): diarrhea fluid retention and swelling nausea pain, redness, or irritation at site where injected What may interact with this medicine? Significant interactions are not expected. What if I miss a dose? It is important not to miss your dose. Call your doctor or health date night caregiver if you are unable to keep an [...] or health care provider. Copyright 2018 Elsevier UETTE MOLDER documented in this encounter Progress Notes Rossana Perez LVN - 12/02/2019 8:30 AM CST29 year old female in clinic today for [place] progesterone injection. 250 mg administered IM to [...] file Gets together: Not on file Attends catholic service: Not on file Active member of [...] or abuse No exposure to cats No catholic preference Patient lives with father and child. [...] Description 12/09/2019 [facility]2019 Routine Visit OB Satellites Lamar Barry FNP [address] [place], [place] [address] Health Maintenance Due Date Last Done Comments [...] AM High-risk Results for this SPECIFIC GRAVITY BRIQUETTE MOLDER in third trimester procedure are in the results section. POCT URINALYSIS W/O Routine 12/02/2019 9:11 AM High-risk Results for this SPECIFIC GRAVITY BRIQUETTE MOLDER in third trimester procedure are in the results section. documented in this encounter Results POCT URINALYSIS W/O SPECIFIC GRAVITY (12/02/2019 9:12 AM BRIQUETTE MOLDER) POCT PH U .Comment: error 5 - [...] URINALYSIS W/O SPECIFIC GRAVITY (12/02/2019 9:11 AM BRIQUETTE MOLDER) POCT PH U . 5 - 8 [...] mg Right Upper Quad. presv) (MARY) 250 BRIQUETTE MOLDER Gluteus mg/mL (1 mL) injection 250 mg 250 mg, Intramuscular, QWEEKLY, 14 doses, First dose on Thu09/19/19 at 1200, Last dose on Thu12/19/19 at 1200, Routine Given 11/25/2019 10:33 AM BRIQUETTE MOLDER 250 mg Left Upper Quad. Gluteus Given 11/18/2019 9:30 AM BRIQUETTE MOLDER 250 mg Right Dorsogluteal-IM documented in this encounter Insurance Payer Benefit Plan / Subscriber ID Effective Phone Address Type Group [facility] x[facility]-Pres [address] Medicaid HEALTH CHOICE - HEALTH CHOICE ent [id number] MANAGED MEDICAID [place], [place]ICAID [id number] [address] Diaz (Home) [place] [address] documented as of this encounter Advance Directives Name Relationship Healthcare Agent Relationship Communication Wan Garcia Primary healthcare agent
--- OUTSIDE RECORDS SUMMARY | 2020-01-11 02:22 | XMS REPORT | Summary of Care ---
:1990 Author Organization [facility] Address [address] [place] [address] Care Team Providers Name Role Phone Doctor Unassigned, [place] Medicaid Hmo Unavailable Nicki, Song [facility] [facility] Unavailable Unavailable Cisco Izquierdo WHITE WASHER PILER Unavailable Lamar Barry Primary Care Provider Reason for Visit Reason Comments NURSE VISIT Encounter Details Date Type Department Care Team Description 11/11/2019 Nurse Visit [facility]- Lamar Barry, WHITE WASHER PILER [address] [place] [address] [facility] [place] [facility] [address] [place] [address] Allergies No Known Allergiesdocumented as of this encounter (statuses as of 11/11/2019) Medications Medication Sig Dispensed Refills Start Date [...] as of this encounter (statuses as of 11/11/2019) Active Problems Problem Noted Date Rh negative, [...] as of this encounter (statuses as of 11/11/2019) Resolved Problems Problem Noted Date Resolved Date [...] as of this encounter (statuses as of 11/11/2019) Immunizations Name Administration Dates Next Due Rho [...] Sign Reading Time Taken Comments Blood Pressure 110/71 11/11/2019 2:47 PM MATERIAL HANDLER LOADER Pulse 95 11/11/2019 2:47 PM MATERIAL HANDLER LOADER Temperature 37 C (98.6 F) 11/11/2019 2:47 PM MATERIAL HANDLER LOADER Respiratory Rate 18 11/11/2019 2:47 PM MATERIAL HANDLER LOADER Oxygen Saturation - - Inhaled Oxygen Concentration - - Weight 74.9 kg (165 lb 1 oz) 11/11/2019 2:47 PM MATERIAL HANDLER LOADER Height 165.1 cm (5' 5") 11/11/2019 2:47 PM MATERIAL HANDLER LOADER Body Mass Index 27.47 11/11/2019 2:47 PM MATERIAL HANDLER LOADER documented in this encounter Patient Instructions Patient InstructionsRossana Perez LVN - 11/11/2019 2:15 PM MATERIAL HANDLER LOADER Hydroxyprogesterone solution for injection Brand Name: Ruiz [...] skin. It is given by a health wound care rn in a hospital or clinic setting. Talk to your compensation consultant regarding the use of this medicine in children. Special care may be needed. What side effects may I notice from receiving this medicine? Side effects that you should report to your doctor or health wound care rn as soon as possible: allergic reactions like [...] attention (report to your doctor or health wound care rn if they continue or are bothersome): diarrhea fluid retention and swelling nausea pain, redness, or irritation at site where injected What may interact with this medicine? Significant interactions are not expected. What if I miss a dose? It is important not to miss your dose. Call your doctor or health wound care rn if you are unable to keep an [...] or health care provider. Copyright 2018 Elsevier RIAL HANDLER LOADER documented in this encounter Progress Notes Rossana Perez LVN - 11/11/2019 2:15 PM CST29 year old female in clinic today for [place] progesterone injection. 250 mg administered IM to leftgluteus- see MAR entry. Witnessed by Iwona Arnold RN. Medication supplied by outside pharmacy. Pt tolerated injection well, warning signs discussed with her at this time. Pt instructed to RTC 1 wk for next dose or PRN. Pt verbalized understanding. Rossana Rubio LVN 11/11/2019 2:49 PM documented in this encounter Plan of Treatment Date Type Specialty Care Team Description 11/14/2019 Routine Visit OB Satellites Lamar Barry, WHITE WASHER PILER [address] [place] [address] [phone] 11/18/2019 Nurse Visit OB Satellites Visit, [facility] Nurse Health Maintenance Due Date Last Done Comments [...] Action Date Dose Rate Site HYDROXYprogest(PF)(preg Given 11/11/2019 2:50 PM 250 mg Left Upper Quad. presv) (RUIZ) 250 MATERIAL HANDLER LOADER Gluteus mg/mL (1 mL) injection 250 mg 250 mg, Intramuscular, QWEEKLY, 14 doses, First dose on Thu09/19/19 at 1200, Last dose on Thu12/19/19 at 1200, Routine Given 10/31/2019 3:36 PM MATERIAL HANDLER LOADER 250 mg Right Upper Quad. Gluteus Given 10/24/2019 3:02 PM MATERIAL HANDLER LOADER 250 mg Left Dorsogluteal-IM documented in this encounter Insurance Payer Benefit Plan / Subscriber ID Effective Phone Address Type Group Dates [facility] xxxxxxxxx 2019-Pres [address] Medicaid HEALTH CHOICE - HEALTH CHOICE [facility] [id number] MANAGED MEDICAID [place], [place]ICAID [phone] [address] Diaz (Home) [place] [address] documented as of this encounter Advance Directives Name Relationship Healthcare Agent Relationship Communication Wan Garcia Primary healthcare agent
--- OUTSIDE RECORDS SUMMARY | 2020-01-11 02:22 | XMS REPORT | Summary of Care ---
:1990 Author Organization [facility] Address [address] [place] [address] Care Team Providers Name Role Phone Doctor Unassigned, [place] Medicaid Hmo Unavailable Faculty, Song Okeefeaden [facility] Unavailable Unavailable Cisco Izquierdo [facility] Unavailable Lamar Barry [facility] Primary Care Provider Reason for Referral (Routine) Status Reason Specialty Diagnoses / Referred By Referred To Procedures Contact Contact Closed Maternal Diagnoses Fundal height low for dates in third trimester Lamar Barry Medicine Procedures CONSULT MATERNAL MEDICINE ULTRASOUND Preferred Location: GRICEL Benavidez [address] [address] Reason for Visit Reason Comments Care Encounter Details Date Type Department Care Team Description 10/31/2019 Routine [facility]- Lamar Barry High-risk in third trimester (Primary Dx); Visit GRICEL Benavidez H/O cervical incompetence; [address] Current with history of pre-term labor in second trimester; [place], [place] Rh negative, antepartum; [address] [place], [place] Fundal height low for dates in third trimester [phone] [address] [phone] Allergies No Known Allergiesdocumented as of this [...] 250 mg/mL (1 mL) injection 250 mg rho(D) immune globulin 300 mcg IM ONCE 10/31/2019 10/31/2019 Ended (RHOGAM) syringe 300 mcgIndications: Rh negative, antepartum documented as of this encounter (statuses [...] Reading Time Taken Comments Blood Pressure 110/71 10/31/2019 2:46 PM GELATIN POWDER MIXER Pulse 105 10/31/2019 2:46 PM GELATIN POWDER MIXER Temperature 36.4 C (97.5 F) 10/31/2019 2:46 PM GELATIN POWDER MIXER Respiratory Rate 16 10/31/2019 2:46 PM GELATIN POWDER MIXER Oxygen Saturation - - Inhaled Oxygen Concentration - - Weight 73.1 kg (161 lb 2 oz) 10/31/2019 2:46 PM GELATIN POWDER MIXER Height 165.1 cm (5' 5") 10/31/2019 2:46 PM GELATIN POWDER MIXER Body Mass Index 26.81 10/31/2019 2:46 PM GELATIN POWDER MIXER documented in this encounter Progress Notes Rossana Perez LVN - 10/31/2019 2:30 PM CST29 year old female in clinic today for Ruiz progesterone injection. 250 mg administered IM to right gluteus - see MAR entry. Witnessed by Iwona Arnold RN. Medication supplied by outside pharmacy. Pt tolerated injection well, warning signs discussed with her at this time. Pt instructed to RTC 1 wkfor next dose or PRN. Pt verbalized understanding. Rossana Perez LVN 10/31/2019 2:32 PM uRossana gray LVN - 10/31/2019 2:30 PM CSTPatient provided with 28 weeks packet; stressed the importance of the kick count of 10 x within 2 hours; patient verbalized understanding. Tdap given IM to right deltoid per aseptic tech; site massaged; band-aid applied ; tolerated well; VIS given and reviewed with patient at this time. Shared decision plan completed today. Reviewed s/s of labor. PHQ2 done at this time. Patient denies any complications at this time. Lamar Moe FNP - 10/31/2019 2:30 PM CST Chief complaint: Chief Complaint Patient presents with Care HPI Bettye Anaya is a 29 year old female is a @ 28w0d here for visit. Patient's last menstrual period [...] Last attempt to quit: 02/24/2014 Years since quittin.6 Smokeless tobacco: Never Used Substance and Sexual [...] file Gets together: Not on file Attends rastafari service: Not on file Active member of [...] or abuse No exposure to cats No rastafari preference Patient lives with father and child. Social History Substance and Sexual Activity Sexual Activity Yes Partners: Male control/protection: None Comment: last sexual intercourse 05/25/2019 Labs I have reviewed the patient's labs. and Labs are pending. Radiology Radiology pending. Allergies Bettye has No Known Allergies. Medications Bettye has a current medication list which includes the following prescription(s): hydroxyprogest(pf)(preg presv), promethazine, and pnv 67-iron ps-folate no.1-dha, and the following Facility-Administered Medications: rho(d) immune globulin and hydroxyprogest(pf)(preg presv). Review of Systems Constitutional: Negative [...] dizziness, light-headedness and headaches. Psychiatric/Behavioral: Negative. BP 110/71 (BP Location: Right arm, Patient Position: Sitting, BP CUFF SIZE: Adult Medium) | Pulse 105 | Temp 36.4 C (97.5 F) (Oral) | Resp 16 | Ht 5 ' 5" (1.651 m) | Wt 161 lb 2 oz (73.1 kg) |LMP 04/18/2019 (Approximate) | BMI 26.81 kg/m Pregravid BMI: 24.6 Physical Exam Vitals reviewed. Constitutional: She is oriented to person, place, and time. She appears well- developed and well-nourished. See flowsheet Cardiovascular: No peripheral edema present. Pulmonary/Chest: Normal inspiratory effort. Abdominal: Abdomen is soft. Neuro/Psychiatric: She has a normal mood and affect. She is oriented to person, place, and time. Skin: Skin normal. Assessment/Plan 1. High-risk in third trimester 28w0d Labor precautions, FKC and PIH warnings reviewed. 28 week teaching, labs, and tdap today - POCT URINALYSIS W/O SPECIFIC GRAVITY - TDAP (ADACEL) IMMUNIZATION - GALV ONLY - SYPHILIS IGG/IGM - HIV 1/2 AG-AB WITH REFLEX 2. H/O cervical incompetence On weekly Ruiz injections 3. Current with history of pre-term labor in second trimester Denies s/s PTL 4. Rh negative, antepartum Rhogam given today - WORKUP, BLOOD BANK - rho(D) immune globulin (RHOGAM) syringe 300 mcg 5. Fundal height low for dates in third trimester Fundal height 25cm at 28 weeks Growth scan ordered - CONSULT MATERNAL MEDICINE ULTRASOUND Preferred Location: [place] Return to clinic in 1 for Nectar and in 2 week for visit weeks. Reviewed patient instructions and provided printed copy. at 28w0d This visit did not involve counseling and coordination that comprised more than 50% of the visit time. documented in this encounter Plan of Treatment Date Type Specialty Care Team Description 11/14/2019 Routine Visit OB Satellites Lamar Barry FNP [address] [address] [phone] Health Maintenance Due Date Last Done Comments [...] Associated Comments Diagnosis POCT URINALYSIS W/O Routine 10/31/2019 3:10 High-risk Results for this SPECIFIC GRAVITY PM GELATIN POWDER MIXER in third trimester procedure are in the results section. HB INDIRECT Routine 10/31/2019 3:00 Rh negative, Results for this ANTIGLOBULIN TEST PM GELATIN POWDER MIXER antepartum procedure are in the results section. GALV ONLY - SYPHILIS Routine 10/31/2019 2:57 High-risk Results for this IGG/IGM PM GELATIN POWDER MIXER in third trimester procedure are in the results section. HIV 1/2 AG-AB WITH Routine 10/31/2019 2:57 High-risk Results for this REFLEX PM GELATIN POWDER MIXER in third trimester procedure are in the results section. TDAP (ADACEL) Routine 10/31/2019 2:53 High-risk IMMUNIZATION PM GELATIN POWDER MIXER in third trimester documented in this encounter Results POCT URINALYSIS W/O SPECIFIC GRAVITY (10/31/2019 3:10 PM GELATIN POWDER MIXER) POCT PH U . 5 - 8 mg/dl POCT U LEUK EST . Negative - Negative POCT U NIT . Negative - Negative POCT U PROT trace Negative - Negative POCT U GLU negative Negative - Negative POCT U KETONE .. Negative - Negative POCT U BLD . Negative - Negative Specimen Urine - URINE, CLEAN CATCH WORKUP, BLOOD BANK (10/31/2019 3:00 PM GELATIN POWDER MIXER) IAT Negative LAB Comment: Performed at [facility] Laboratory Services - [facility] Blood [place] [address] Toll Free: [phone] CLIA No. [id number] ABO & RH O NEGATIVE LAB Comment: Performed at [facility] Laboratory Services - [facility] Blood [place] [id number] Toll Free: [phone] CLIA No. [id number] Specimen Blood - VENOUS Performing Organization Address City/[facility]/Zipcode Phone Number [facility] LAB HIV 1/2 AG-AB WITH REFLEX (10/31/2019 2:57 PM GELATIN POWDER MIXER) HIV 1/2 Ag-Ab with Negative Negative [facility] LABORATORY Reflex SERVICES HIV Semi-quantitative 0.06 [facility] LABORATORY SERVICES Specimen Blood - ARM, LEFT Narrative Performed At Non-reactive for HIV-1 antigen and HIV-1/HIV-2 antibodies. [facility] LABORATORY SERVICES No laboratory evidence of HIV infection. Repeat in 2-4 weeks if acute HIV infection is suspected. Performing Organization Address City/[facility] Cent[facility]ode Phone Number [facility]ORATORY SERVICES CLIA: [id number], [address] [place] [phone] [facility] GALV ONLY - SYPHILIS IGG/IGM (10/31/2019 2:57 PM GELATIN POWDER MIXER) Syphilis IgG/IgM Non-reactive Non-reactive [facility] LABORATORY SERVICES Specimen Blood - VENOUS Narrative Performed At [facility] LABORATORY SERVICES Non-reactive - No serologic evidence of T. pallidum infection. Cannot exclude incubating or early syphilis. Submit a second specimen in 2-4 weeks if syphilis is clinically suspected. Equivocal - Further testing to follow. Reactive - Further testing to follow. Performing Organization Address [facility] Centercomt Phone Number [facility]ORATORY SERVICES CLIA: [id number], [address] [place] [phone] [facility] documented in this encounter Visit Diagnoses Diagnosis High-risk in third trimester - Primary H/O cervical incompetence Personal history of other genital system and obstetric disorders Current with history of pre-term labor in second trimester Rh negative, antepartum Rhesus isoimmunization affecting management of mother, antepartum condition Fundal height low for dates in third trimester documented in this encounter Administered Medications Medication Order MAR Action Action Date Dose Rate Site HYDROXYprogest(PF)(preg Given 10/31/2019 3:36 PM 250 mg Right Upper Quad. presv) (RUIZ) 250 GELATIN POWDER MIXER Gluteus mg/mL (1 mL) injection 250 mg 250 mg, Intramuscular, QWEEKLY, 14 doses, First dose on Thu09/19/19 at 1200, Last dose on Thu12/19/19 at 1200, Routine Given 10/24/2019 3:02 PM GELATIN POWDER MIXER 250 mg Left Dorsogluteal-IM Given 10/17/2019 11:18 AM GELATIN POWDER MIXER 250 mg Left Dorsogluteal-IM Medication Order MAR Action Action Date Dose Rate Site rho(D) immune globulin Given 10/31/2019 3:35 PM 300 mcg Left Upper Quad. (RHOGAM) syringe 300 GELATIN POWDER MIXER Gluteus mcg 300 mcg, Intramuscular, ONCE, 1 dose, 10/31/19 at 1600, Routine documented in this encounter Insurance Payer Benefit Plan / Subscriber ID Effective Phone Address Type Group Dates [facility] xxxxxxxxx 2019-Pres [address] Medicaid HEALTH CHOICE - HEALTH CHOICE ent [id number] MANAGED MEDICAID [place], [place] MEDICAID [phone] [address] (Home) [place] [address] documented as of this encounter Advance Directives Name Relationship Healthcare Agent Relationship Communication Wan Anaya Father Primary healthcare agent
--- OUTSIDE RECORDS SUMMARY | 2020-01-11 02:23 | XMS REPORT | Summary of Care ---
:1990 Author Organization [facility] Address [address] [place] [address] Care Team Providers Name Role Phone Doctor Unassigned, [place] Medicaid Hmo Unavailable Nicki, Song Okeefeaden [facility] Unavailable Unavailable Cisco Izquierdo WORKING MANAGER Unavailable Lamar Barry WORKING MANAGER Primary Care Provider Reason for Visit Reason Comments NURSE VISIT Ruiz Encounter Details Date Type Department Care Team Description 12/13/2019 Nurse Visit [facility]- Brandie Villar, CNP [address] [place] [address] [facility] [address] [place] [address] Allergies No Known Allergiesdocumented as of this encounter (statuses as of 12/13/2019) Medications Medication Sig Dispensed Refills Start Date [...] as of this encounter (statuses as of 12/13/2019) Active Problems Problem Noted Date Rh negative, [...] as of this encounter (statuses as of 12/13/2019) Resolved Problems Problem Noted Date Resolved Date [...] as of this encounter (statuses as of 12/13/2019) Immunizations Name Administration Dates Next Due Rho [...] Sign Reading Time Taken Comments Blood Pressure 106/67 12/13/2019 11:11 AM SALES EXEC Pulse 102 12/13/2019 11:11 AM SALES EXEC Temperature 36.9 C (98.5 F) 12/13/2019 11:11 AM SALES EXEC Respiratory Rate 16 12/13/2019 11:11 AM SALES EXEC Oxygen Saturation - - Inhaled Oxygen Concentration - - Weight 75.4 kg (166 lb 2 oz) 12/13/2019 11:11 AM SALES EXEC Height - - Body Mass Index 27.64 12/02/2019 9:08 AM SALES EXEC documented in this encounter Progress Notes Heide Velazquez RN - 12/13/2019 10:30 AM CST29 year old female in clinic today for [place] progesterone injection. 250 mg administered IM to leftgluteus- see MAR entry. Witnessed by Trina Rubio LVN. Medication supplied by outside pharmacy. Pt tolerated injection well, warning signs discussed with her at this time. Pt instructed to RTC 1 wk for next dose or PRN. Pt verbalized understanding. Heide Velazquez RN 12/13/2019 11:20 AM documented in this encounter Plan of Treatment Date Type Specialty Care Team Description 12/16/2019 Routine Visit OB Satellites Lamar Barry, WORKING MANAGER [address] [place] [address] [phone] 12/20/2019 Nurse Visit OB Satellites Visit, [employer] [facility] [employer] [facility] Nurse Health Maintenance Due Date Last Done [...] Action Date Dose Rate Site HYDROXYprogest(PF)(preg Given 12/13/2019 11:19 AM 250 mg Left presv) (RUIZ) 250 SALES EXEC Dorsogluteal-IM mg/mL (1 mL) injection 250 mg 250 mg, Intramuscular, QWEEKLY, 14 doses, First dose on Thu09/19/19 at 1200, Last dose on Thu12/19/19 at 1200, Routine Given 12/02/2019 9:27 AM SALES EXEC 250 mg Right Upper Quad. Gluteus Given 11/25/2019 10:33 AM SALES EXEC 250 mg Left Upper Quad. Gluteus documented in this encounter Insurance Payer Benefit Plan / Subscriber ID Effective Phone Address Type Group [facility] xxxxxxxxx 2019-Pres [address] Medicaid HEALTH CHOICE - HEALTH CHOICE [facility] [id number] MANAGED MEDICAID [place], [place] MEDICAID [phone] [address] Diaz (Home) [place] [address] documented as of this encounter Advance Directives Name Relationship Healthcare Agent Relationship Communication Wan Anaya Father Primary healthcare agent
--- OUTSIDE RECORDS SUMMARY | 2020-01-11 02:23 | XMS REPORT | Summary of Care ---
:1990 Author Organization [facility] Address [address] [place] [address] Care Team Providers Name Role Phone Doctor Unassigned, [place] Medicaid Hmo Unavailable Nicki, Song Api Healthcareaden [facility] Unavailable Unavailable Cisco Izquierdo REFUSE DRIVER Unavailable Lamar Barry Primary Care Provider Reason for Visit Reason Comments Care Encounter Details Date Type Department Care Team Description 11/23/2019 Routine [facility]- Lamar Barry High-risk in third trimester (Primary Dx); Visit GRICEL Benavidez Rh negative, antepartum; [address] Current with history of pre-term labor in third trimester [place] [address] [place], [place] [phone] [address] Allergies No Known Allergiesdocumented as of this encounter (statuses as of 11/23/2019) Medications Medication Sig Dispensed Refills Start Date [...] as of this encounter (statuses as of 11/23/2019) Active Problems Problem Noted Date Rh negative, [...] as of this encounter (statuses as of 11/23/2019) Resolved Problems Problem Noted Date Resolved Date [...] as of this encounter (statuses as of 11/23/2019) Immunizations Name Administration Dates Next Due Rho [...] Sign Reading Time Taken Comments Blood Pressure 107/70 11/23/2019 3:57 PM MANAGER CUSTOM Pulse 100 11/23/2019 3:57 PM MANAGER CUSTOM Temperature 36.4 C (97.5 F) 11/23/2019 3:57 PM MANAGER CUSTOM Respiratory Rate 16 11/23/2019 3:57 PM MANAGER CUSTOM Oxygen Saturation - - Inhaled Oxygen Concentration - - Weight 75.3 kg (166 lb) 11/23/2019 3:57 PM MANAGER CUSTOM Height 165.1 cm (5' 5") 11/23/2019 3:57 PM MANAGER CUSTOM Body Mass Index 27.62 11/23/2019 3:57 PM MANAGER CUSTOM documented in this encounter Progress Notes Lamar Barry FNP - 11/23/2019 3:45 PM CST Chief complaint: Chief Complaint Patient presents with Care HPI Bettye Anaya is a 29 year old female is a @ 31w2d here for visit. Patient's last menstrual period [...] Y ND Comments: Incompentent cervix Obstetric Comments 2005 (different partner) 2007,2013,2014, current pregnacy (current partner) [...] file Gets together: Not on file Attends orthodoxy service: Not on file Active member of [...] or abuse No exposure to cats No orthodoxy preference Patient lives with father and child. Social History Substance and Sexual Activity Sexual Activity Yes Partners: Male control/protection: None Comment: last sexual intercourse 05/25/2019 Labs No new labs and I have reviewed the patient's labs. Radiology I have reviewed the patient's radiology. growth scan reviewed from 1 month ago, EFW 30th% Allergies Bettye has No Known Allergies. Medications [...] dizziness, light-headedness and headaches. Psychiatric/Behavioral: Negative. BP 107/70 (BP Location: Right arm, Patient Position: Sitting, BP CUFF SIZE: Adult Medium) | Pulse 100 | Temp 36.4 C (97.5 F) (Oral) | Resp 16 | Ht 5 ' 5" (1.651 m) | Wt 166 lb (75.3 kg) | LMP 04/18/2019 (Approximate) | BMI 27.62 kg/m Pregravid BMI: 24.6 Physical Exam Vitals reviewed. Constitutional: She is oriented to person, place, and time. She appears well- developed and well-nourished. See flowsheet Cardiovascular: No peripheral edema present. Pulmonary/Chest: Normal inspiratory effort. Abdominal: Abdomen is soft. Neuro/Psychiatric: She has a normal mood and affect. She is oriented to person, place, and time. Skin: Skin normal. Assessment/Plan 1. High-risk in third trimester 31w2d Labor precautions, FKC and PIH warnings reviewed. - POCT URINALYSIS GLUCOSE & PROTEIN 2. Rh negative, antepartum Rhogam given 10/31/19 3. Current with history of pre-term labor in third trimester On weekly 17OH injections Denies s/s PTL Return to clinic in 1 weeks. Reviewed patient instructions and provided printed copy. at 31w2d This visit did not involve counseling and coordination that comprised more than 50% of the visit time. documented in this encounter Plan of Treatment Date Type Specialty Care Team Description 11/25/2019 Nurse Visit OB Satellites Visit, [facility] Nurse 12/02/2019 Routine Visit OB Satellites Lamar Barry FNP [address] [place] [address] [phone] Health Maintenance Due Date Last Done Comments [...] Priority Date/Time Associated Comments Diagnosis POCT URINALYSIS Routine 11/23/2019 3:59 PM High-risk Results for this GLUCOSE & PROTEIN MANAGER CUSTOM in third trimester procedure are in the results section. documented in this encounter Results POCT URINALYSIS GLUCOSE & PROTEIN (11/23/2019 3:59 PM MANAGER CUSTOM) POCT U PROT trace Negative - Negative POCT U GLU neg Negative - Negative Specimen Urine - URINE, CLEAN CATCH documented in this encounter Visit Diagnoses Diagnosis High-risk in third trimester - Primary Rh negative, antepartum Rhesus isoimmunization affecting management of mother, antepartum condition Current with history of pre-term labor in third trimester documented in this encounter Insurance Payer Benefit Plan / Subscriber ID Effective Phone Address Type Group Dates [facility] xxxxxxxxx 2019-Pres [address] Medicaid HEALTH CHOICE - HEALTH CHOICE [facility] [id number] [facility] MEDICAID [place], [place] MEDICAID [id number] [address] Diaz (Home) [place] [address] documented as of this encounter Advance Directives Name Relationship Healthcare Agent Relationship Communication Wan Anaya Father Primary healthcare agent
--- OUTSIDE RECORDS SUMMARY | 2020-01-11 02:23 | XMS REPORT | Summary of Care ---
:1990 Author Organization [facility] Address [address] [place] [address] Care Team Providers Name Role Phone Doctor Unassigned, [place] Medicaid Hmo Unavailable Nicki, Song O[place]feaden [facility] Unavailable Unavailable Cisco Izquierdo EARTH SCIENCE FACULTY MEMBER Unavailable Lamar Barry EARTH SCIENCE FACULTY MEMBER Primary Care Provider Reason for Visit Reason Comments Referral/consult Encounter Details Date Type Department Care Team Description 12/14/2019 Telephone [facility]- Lamar Barry, EARTH SCIENCE FACULTY MEMBER Referral/consult [place] [address] [facility] [place] [address] [place], [place] [id number] Allergies No Known Allergiesdocumented as of this encounter (statuses as of 12/14/2019) Medications Medication Sig Dispensed Refills Start Date [...] as of this encounter (statuses as of 12/14/2019) Active Problems Problem Noted Date Rh negative, [...] as of this encounter (statuses as of 12/14/2019) Resolved Problems Problem Noted Date Resolved Date [...] as of this encounter (statuses as of 12/14/2019) Immunizations Name Administration Dates Next Due Rho [...] 12/16/2019 Routine Visit OB Satellites Lamar Barry, EARTH SCIENCE FACULTY MEMBER [address] [facility] [place] [address] [phone] 12/20/2019 Nurse Visit OB Satellites Visit, [facility] Nurse Health Maintenance Due Date Last [...] ID Effective Phone Address Type Group Dates [facility] xxxxxxxxx 2019- [facility] [place] Medicaid HEALTH CHOICE - HEALTH CHOICE [facility] [id number] [facility] MEDICAID [place], [place] MEDICAID [phone] documented as of this encounter Advance Directives Name Relationship Healthcare Agent Relationship Communication Wan Garcia Primary healthcare agent
--- OUTSIDE RECORDS SUMMARY | 2020-01-11 02:24 | XMS REPORT | Summary of Care ---
:1990 Author Organization [facility] Address [address] [place] [address] Care Team Providers Name Role Phone Doctor Unassigned, [place] Medicaid Hmo Unavailable Faculty, Song [facility] Unavailable Unavailable Cisco Izquierdo [employer] COOK Unavailable Lamar Barry [employer] Primary Care Provider Encounter Details Date Type Department Care Team Description 01/10/2020 Orders Only [facility] Doctor Unassigned, No [address] [facility] [place] [address] [address] [place] [address] Allergies No Known Allergiesdocumented as of this encounter (statuses as of 01/10/2020) Medications Medication Sig Dispensed Refills Start Date [...] as needed for Nausea and Vomiting (N/V). documented as of this encounter (statuses as of 01/10/2020) Active Problems Problem Noted Date Rh negative, [...] as of this encounter (statuses as of 01/10/2020) Resolved Problems Problem Noted Date Resolved Date [...] as of this encounter (statuses as of 01/10/2020) Immunizations Name Administration Dates Next Due Rho [...] filedocumented in this encounter Plan of Treatment Health Maintenance Due Date Last Done Comments [...] Date/Time Associated Diagnosis Comments CONSENT/REFUSAL FOR Routine 01/10/2020 10:53 PM CDT DIAGNOSIS AND TREATMENT documented in this encounter Results Not on filedocumented in this encounter Insurance Payer Benefit Plan / Subscriber ID Effective Phone Address Type Group [facility] xxxxxxxxx 2019-Pres [address] Medicaid HEALTH CHOICE - HEALTH CHOICE ent [id number] MANAGED MEDICAID [place], [place] [phone] documented as of this encounter Advance Directives Name Relationship Healthcare Agent Relationship Communication Wan Héctor Garcia Primary healthcare agent
--- OUTSIDE RECORDS SUMMARY | 2020-01-11 02:24 | XMS REPORT | Summary of Care ---
:1990 Author Organization [facility] Address [address] [place] [address] Care Team Providers Name Role Phone Doctor Unassigned, [place] Medicaid Hmo Unavailable Song Caceresaden [facility] Unavailable Unavailable Cisco Izquierdo TELECOMMUNICATIONS CABLE JOINTER Unavailable Lamar Barry Primary Care Provider Reason for Visit Reason Comments Care Encounter Details Date Type Department Care Team Description 01/10/2020 Routine [facility]- Lamar Barry High-risk in third trimester (Primary Dx); Visit GRICEL Benavidez Current with history of pre-term labor in third trimester; [address] Rh negative, antepartum [place] [address] [place], [place] [phone] Allergies No Known Allergiesdocumented as of this encounter (statuses as of 01/10/2020) Medications Medication Sig Dispensed Refills Start Date End Date Status PNV 67-iron Take 1 capsule 30 capsule 11 06/09/2019 Active ps-folate no.1-dha by mouth (VITAFOL ULTRA) 29 daily. mg iron- 1 mg-200 mg CapIndications: High risk , antepartum proMETHazine 25 mg Take 1 tablet 30 tablet 3 09/05/2019 Active tabletIndications: by mouth every Nausea/vomiting in 4 (four) hours as needed for Nausea and Vomiting (N/V). HYDROXYprogest,PF, 0 10/10/2019 01/10/2020 Discontinued ,preg presv, 250 mg/mL (1 mL) injection documented as of this encounter (statuses as [...] Sign Reading Time Taken Comments Blood Pressure 111/65 01/10/2020 9:00 AM CDT Pulse 71 01/10/2020 9:00 AM CDT Temperature 36.6 C (97.8 F) 01/10/2020 9:00 AM CDT Respiratory Rate 16 01/10/2020 9:00 AM CDT Oxygen Saturation - - Inhaled Oxygen Concentration - - Weight 77.3 kg (170 lb 8 oz) 01/10/2020 9:00 AM CDT Height 165.1 cm (5' 5") 01/10/2020 9:00 AM CDT Body Mass Index 28.37 01/10/2020 9:00 AM CDT documented in this encounter Progress Notes Lamar Barry, GRICEL - 01/10/2020 8:30 AM CDT Chief complaint: Chief Complaint Patient presents with Care HPI Bettye Anaya is a 29 year old female is a @ 38w1d here for visit. Patient's last menstrual period [...] Last attempt to quit: 02/24/2014 Years since quittin.8 Smokeless tobacco: Never Used Substance and Sexual [...] file Gets together: Not on file Attends spiritism service: Not on file Active member of [...] or abuse No exposure to cats No spiritism preference Patient lives with father and child. Social History Substance and Sexual Activity Sexual Activity Yes Partners: Male control/protection: None Comment: last sexual intercourse 05/25/2019 Labs I have reviewed the patient's labs. and Labs are pending. Radiology No new radiology. Allergies Bettye has No Known Allergies. Medications Bettye has a current medication list which includes the following prescription(s): pnv 67-iron ps-folate no.1-dha and promethazine. Review of Systems Constitutional: Negative for appetite change, fatigue and fever. Eyes: Negative for visual disturbance. Respiratory: Negative. Cardiovascular: Negative for palpitations and leg swelling. Gastrointestinal: Negative for abdominal pain, constipation, diarrhea, nausea and vomiting. Genitourinary: Negative. Negative for dysuria, vaginal bleeding, vaginal discharge and pelvic pain. Musculoskeletal: Negative. Skin: Negative for rash. Neurological: Negative for dizziness, light-headedness and headaches. Psychiatric/Behavioral: Negative. BP 111/65 (BP Location: Right arm, Patient Position: Sitting, BP CUFF SIZE: Adult Medium) | Pulse 71 | Temp 36.6 C (97.8 F) (Oral) | Resp 16 | Ht 5 ' 5" (1.651 m) | Wt 170 lb 8 oz (77.3 kg) | LMP 04/18/2019 (Approximate) | BMI 28.37 kg/m Pregravid BMI: 24.6 Physical Exam Vitals reviewed. Constitutional: She is oriented to person, place, and time. She appears well- developed and well-nourished. See flowsheet Cardiovascular: No peripheral edema present. Pulmonary/Chest: Normal inspiratory effort. Abdominal: Abdomen is soft. Neuro/Psychiatric: She has a normal mood and affect. She is oriented to person, place, and time. Skin: Skin normal. Assessment/Plan 1. High-risk in third trimester 38w1d Labor precautions, kick counts and PIH warnings reviewed. Needs GBS and CBC today Risks and benefits of 39 week IOL discussed. Pt agrees to 39 week IOL, appointment requested. - CBC WITH DIFF - GROUP B STREPTOCOCCUS BY PCR - CBC WITH DIFFERENTIAL - POCT URINALYSIS W/O SPECIFIC GRAVITY 2. Current with history of pre-term labor in third trimester S/p weekly 17P injections, now term 3. 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 Reviewed patient instructions and provided printed copy. at 38w1d This visit did not involve counseling and coordination that comprised more than 50% of the visit time. documented in this encounter Plan of Treatment Name Type Priority Associated Diagnoses Date/Time CBC WITH DIFF LAB Routine High-risk in 01/10/2020 9:00 AM third trimester CDT GROUP B STREPTOCOCCUS BY LAB Routine High-risk in 01/10/2020 9: 00 AM PCR third trimester CDT CBC WITH DIFFERENTIAL LAB Routine High-risk in 01/10/2020 9:00 AM third trimester CDT Health Maintenance Due Date Last Done Comments [...] Associated Comments Diagnosis POCT URINALYSIS W/O Routine 01/10/2020 9:02 AM High-risk Results for this SPECIFIC GRAVITY CDT in third trimester procedure are in the results section. documented in this encounter Results POCT URINALYSIS W/O SPECIFIC GRAVITY (01/10/2020 9:02 AM CDT) POCT PH U . 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 xxxxxxxxx 2019-Pres [address] Medicaid HEALTH CHOICE - HEALTH CHOICE ent [id number] MANAGED MEDICAID [place], [place] MEDICAID [id number] [address] Diaz (Home) [place] [address] documented as of this encounter Advance Directives Name Relationship Healthcare Agent Relationship Communication Wan Anaya Father Primary healthcare agent
--- OUTSIDE RECORDS SUMMARY | 2020-01-11 02:24 | XMS REPORT | Summary of Care ---
:1990 Author Organization [facility] Address [address] [place] [address] Care Team Providers Name Role Phone Doctor Unassigned, [place] Medicaid Hmo Unavailable Nicki, Song [place] [facility] Unavailable Unavailable Cisco Izquierdo SIZE MAKER Unavailable Lamar Barry SIZE MAKER Primary Care Provider Reason for Visit Reason Comments NURSE VISIT Encounter Details Date Type Department Care Team Description 12/23/2019 Nurse Visit [facility]- Brandie Villar, CNP [address] [place] [address] History of [place] Visit, [facility] Nurse labor (Primary Dx) [address] [place] [address] Allergies No Known Allergiesdocumented as of this encounter (statuses as of 12/23/2019) Medications Medication Sig Dispensed Refills Start Date [...] as of this encounter (statuses as of 12/23/2019) Active Problems Problem Noted Date Rh negative, [...] as of this encounter (statuses as of 12/23/2019) Resolved Problems Problem Noted Date Resolved Date [...] as of this encounter (statuses as of 12/23/2019) Immunizations Name Administration Dates Next Due Rho [...] Sign Reading Time Taken Comments Blood Pressure 113/63 12/23/2019 4:08 PM PHYSICIAN RELATIONS REPRESENTATIVE Pulse 86 12/23/2019 4:08 PM PHYSICIAN RELATIONS REPRESENTATIVE Temperature 36.4 C (97.6 F) 12/23/2019 4:08 PM PHYSICIAN RELATIONS REPRESENTATIVE Respiratory Rate 16 12/23/2019 4:08 PM PHYSICIAN RELATIONS REPRESENTATIVE Oxygen Saturation - - Inhaled Oxygen Concentration - - Weight 76.4 kg (168 lb 8 oz) 12/23/2019 4:08 PM PHYSICIAN RELATIONS REPRESENTATIVE Height 165.1 cm (5' 5") 12/23/2019 4:08 PM PHYSICIAN RELATIONS REPRESENTATIVE Body Mass Index 28.04 12/23/2019 4:08 PM PHYSICIAN RELATIONS REPRESENTATIVE documented in this encounter Patient Instructions Patient InstructionsRossana Perez LVN - 12/23/2019 3:30 PM PHYSICIAN RELATIONS REPRESENTATIVE Hydroxyprogesterone solution for injection Brand Name: Ruiz [...] skin. It is given by a health health care specialist in a hospital or clinic setting. Talk to your construction ironworker regarding the use of this medicine in children. Special care may be needed. What side effects may I notice from receiving this medicine? Side effects that you should report to your doctor or health health care specialist as soon as possible: allergic reactions like [...] attention (report to your doctor or health health care specialist if they continue or are bothersome): diarrhea fluid retention and swelling nausea pain, redness, or irritation at site where injected What may interact with this medicine? Significant interactions are not expected. What if I miss a dose? It is important not to miss your dose. Call your doctor or health health care specialist if you are unable to keep an [...] or health care provider. Copyright 2018 Elsevier ICIAN RELATIONS REPRESENTATIVE documented in this encounter Progress Notes Rossana Perez LVN - 12/23/2019 3:30 PM CST29 year old female in clinic today for [place] progesterone injection. 250 mg administered IM to right gluteus - see MAR entry. Witnessed by Daryn Hinojosa RN. Medication supplied by outside pharmacy. Pttolerated injection well, warning signs discussed with her at this time. Pt instructed to RTC 1 wk for next dose or PRN. Pt verbalized understanding. Rossana Rubio LVN 12/23/2019 4:17 PM documented in this encounter Plan of Treatment Date Type Specialty Care Team Description 12/30/2019 Routine Visit [facility] Lamar Barry, SIZE MAKER [address] [place] [address] [phone] Health Maintenance Due Date Last Done Comments [...] Action Date Dose Rate Site HYDROXYprogest(PF)(preg Given 12/23/2019 4:18 PM 250 mg Right Upper Quad. presv) (RUIZ) 250 PHYSICIAN RELATIONS REPRESENTATIVE Gluteus mg/mL (1 mL) injection 250 mg 250 mg, Intramuscular, QWEEKLY, 14 doses, First dose on Thu09/19/19 at 1200, Last dose on Thu12/19/19 at 1200, Routine Given 12/13/2019 11:19 AM PHYSICIAN RELATIONS REPRESENTATIVE 250 mg Left Dorsogluteal-IM Given 12/02/2019 9:27 AM PHYSICIAN RELATIONS REPRESENTATIVE 250 mg Right Upper Quad. Gluteus documented in this encounter Insurance Payer Benefit Plan / Subscriber ID Effective Phone Address Type Group Dates [facility] xxxxxxxxx 2019-Pres [address] Medicaid HEALTH CHOICE - HEALTH CHOICE [facility] [id number] MANAGED MEDICAID [place], [place] MEDICAID [phone] [address] Diaz (Home) [place] [address] documented as of this encounter Advance Directives Name Relationship Healthcare Agent Relationship Communication Wan Garcia Primary healthcare agent
--- OUTSIDE RECORDS SUMMARY | 2020-01-11 02:25 | XMS REPORT | Summary of Care ---
:1990 Author Organization [facility] Address [address] [place] [address] Care Team Providers Name Role Phone Doctor Unassigned, [place] Medicaid Hmo Unavailable Nicki, Song [facility] Unavailable Unavailable Cisco Izquierdo DEVIL DOG Unavailable Lamar Barry DEVIL DOG Primary Care Provider Reason for Visit Auth/Cert Status Reason Specialty Diagnoses / Procedures Referred By Contact Referred To Contact Obstetrics [facility] Labor And Delivery [address] [place] [address] [place] [address] Encounter Details Date Type Department Care Team Description 01/10/2020 - Hospital Encounter [facility] Labor and LewisMadyson MD 01/11/2020 Delivery Unit [address] [place] [address] [facility] [address] [place] [address] [phone] Allergies No Known Allergiesdocumented as of this encounter (statuses as of 01/11/2020) Medications Medication Sig Dispensed Refills Start Date [...] as of this encounter (statuses as of 01/11/2020) Active Problems Problem Noted Date Rh negative, [...] as of this encounter (statuses as of 01/11/2020) Resolved Problems Problem Noted Date Resolved Date [...] as of this encounter (statuses as of 01/11/2020) Immunizations Name Administration Dates Next Due Rho [...] Sign Reading Time Taken Comments Blood Pressure 116/70 01/10/2020 11:21 PM CDT Pulse 80 01/11/2020 12:30 AM CDT Temperature 36.9 C (98.4 F) 01/10/2020 11:21 PM CDT Respiratory Rate 18 01/10/2020 11:21 PM CDT Oxygen Saturation 100% 01/11/2020 12:30 AM CDT Inhaled Oxygen Concentration - - Weight 77.8 kg (171 lb 9.6 oz) 01/10/2020 11:21 PM CDT Height 165.1 cm (5' 5") 01/10/2020 11:21 PM CDT Body Mass Index 28.56 01/10/2020 11:21 PM CDT documented in this encounter Plan of Treatment Health [...] Procedure Name Priority Date/Time Associated Diagnosis Comments ADC ONLY - FERN Routine 01/10/2020 11:42 PM Results for this TEST CDT procedure are in the results section. ADC CLC OR LCC ONLY Routine 01/10/2020 11:42 PM Results for this - WET PREP CDT procedure are in the results section. documented in this encounter Results ADC CLC OR LCC ONLY - WET PREP (01/10/2020 11:42 PM CDT) Wet Prep Occasional (Rare) [facility] Epithelial cells [facility] present Wet Prep Few WBC per high-power [facility] LABORATORY Wet Prep Occasional (Rare) Red [facility] blood cells [facility] Wet Prep Few Organisms [facility] seenComment: [facility] Wet Prep No Yeast [facility] Wet Prep No Clue cells present [facility] Wet Prep No Trichomonas [facility] vaginalis present HOSPITAL LABORATORY Specimen Fluid - CERVIX Performing Organization Address City/[facility]/Zipcode Phone Number [facility] CLIA: [id number], [address] [place], [place] [phone] LAB[address] [facility] ONLY - FERN TEST (01/10/2020 11:42 PM CDT) Fern Test Positive [facility] Specimen Fluid - VAGINA Performing Organization Address City/[facility]/Zipcode Phone Number [facility] CLIA: [id number], [address] [place], [place] [address] [address] documented in this encounter Insurance Payer Benefit Plan / Subscriber ID Effective Phone Address Type Group Dates [facility] xxxxxxxxx 2019-Pres [address] Medicaid HEALTH CHOICE - HEALTH CHOICE ent [id number] MANAGED MEDICAID [place], [place] MEDICAID [id number] [address] Diaz ([place]) [place] [address] documented as of this encounter Advance Directives Name Relationship Healthcare Agent Relationship Communication Wan Garcia Primary healthcare agent
[2020-01-11] MEDS ORDERED: Ringers Lactate 1,000 ML IV PRN (03:09)
[2020-01-11] MEDS ORDERED: BUTORPHANOL 1 MG/ML INJ IV PRN (03:09)
[2020-01-11] MEDS ORDERED: PROMETHAZINE INJ 25 MG/ML AMP IV PRN (03:09)
[2020-01-11 03:59] VITALS: BMI 28.3
[2020-01-11] MEDS ORDERED: OXYTOCIN/LR 20 UNIT/1,000 ML BAG IV SCH ×2 (04:00→10:00)
[2020-01-11] MEDS ORDERED: Ringers Lactate 1,000 ML IV SCH (04:00)
[2020-01-11] MEDS ORDERED: OXYTOCIN/LR 20 UNIT/1,000 ML BAG IV ONE (04:05)
[2020-01-11 04:07] LABS: Absolute Lymphocytes (CBC) 2.2 K/uL (0.7-4.9); Basophils % 0.8 % (0-1.3); Hematocrit 29.9 % (36.0-45.0); Lymphocytes % 15.7 % (15.3-44.8); MPV 10.5 fL (7.6-11.3); RBC Red Blood Cell Count 3.25 M/uL (3.86-4.86)
--- NOTE | 2020-01-11 06:35 | P.PN ---
Date of Service: 01/11/20 [facility] pt presents with ROM, now 4cm/100%/minus one station. Plan epidural placement, prepare for delivery.
[2020-01-11] MEDS ORDERED: FENTANYL CITR 100 MCG/2 ML IV ONE (06:37)
[2020-01-11] MEDS ORDERED: ROPIVACAINE HCL 100 ML IV PRN (06:37)
[2020-01-11] MEDS ORDERED: ROPIVACAINE HCL 0.2% 20ML AMP IV ONE (06:41)
[2020-01-11] MEDS ORDERED: ROPIVACAINE HCL 20 ML ONE (06:45)
[2020-01-11] MEDS ORDERED: FENTANYL CITR 100 MCG/2 ML ONE (06:45)
[2020-01-11] MEDS ORDERED: ROPIVACAINE HCL 100 ML IV ONE (06:46)
--- NOTE | 2020-01-11 07:36 | PREOPHP ---
Date of Admission: 01/11/2020 History: Ms. Anaya is a 29-year-old female, 6, para 0-2-3-1, with prior at 21 weeks who shortly after , demise at 17 weeks, and delivery at 31 weeks. She has been followed through the [facility] and being given IM progesterone on various visits, but I believe that she was probably not very compliant. She disappeared from them from between 32 and 38 weeks. She noticed the possible leaking of fluid starting about 2 o'clock yesterday afternoon, intermittently was leaking and finally presented to [facility] where rupture of membranes was confirmed. She signed out apparently AMA, told them that she was going to be going to [place]. She dropped her daughter off, but then because contractions became stronger, presented to Labor and Delivery at [facility]. Rupture of membranes was confirmed. She was noted to be 1 cm on admission with irregular contractions approximately every 5 to 6 minutes. Past Medical History: Please see record. Family History: Please see record. Review of Systems: She reports no recent cough, cold, fever, or chills. No recent nausea or vomiting. No breast lumps or knots. No bowel or bladder issues. has been active. Physical Examination: General: Reveals female in moderate discomfort. Neck: Supple without adenopathy or thyromegaly. Lungs: Clear. Cardiac: Regular rate and rhythm without murmurs. Breasts: Not examined. Abdomen: Estimated weight of 6+ pounds. Pelvic: Now cervix noted to be 4 cm dilated, almost completely effaced, vertex presentation at -1 station. Extremities: No cyanosis, clubbing, or edema. Impression: 38-week , spontaneous rupture of membranes, now active labor after Pitocin augmentation. Plan: We will plan epidural placement. We will hydrate, call Anesthesia. Discrepancy regarding whether or not she has gotten flu shot and/or Tdap shots and patient has unconvincing reason why she did not come in for 6 weeks for her care despite obviously being a high-risk . We will do urine drug screening. Strep culture done yesterday, results not back yet, will treat according risk factors and at this time she has none. DK/DAVID Voice ID: [id number] CECILLE
[2020-01-11] MEDS ORDERED: EPHEDRINE SULF 50 MG/ML VIAL ONE (08:25)
[2020-01-11 09:02] LABS: Barbiturates NEGATIVE (NEGATIVE); Benzodiazepines NEGATIVE (NEGATIVE); Cocaine NEGATIVE (NEGATIVE); METHAMPHETAM NEGATIVE (NEGATIVE); Methadone NEGATIVE (NEGATIVE); Opiates NEGATIVE (NEGATIVE); Phencyclidine NEGATIVE (NEGATIVE)
[2020-01-11 09:05] LABS: THC Cannibis POSITIVE (NEGATIVE)
[2020-01-11] MEDS ORDERED: MEASLES,MUMPS,RUBELLA VAC 0.5ML SQVAC ONE (10:00)
[2020-01-11] MEDS ORDERED: Tdap (Diph,Pertuss(Acell),Tet Vac) 0.5 ML SYR IMVAC ONE (10:00)
[2020-01-11] MEDS ORDERED: METHYLERGONOVINE 0.2MG/ML AMP IM PRN (10:00)
[2020-01-11] MEDS ORDERED: CARBOPROST TROME 250 MCG/ML IM PRN (10:00)
[2020-01-11] MEDS ORDERED: Oxycodone HCl/Acetaminophen 1 TAB TAB PO PRN (10:00)
[2020-01-11] MEDS ORDERED: METHYLERGONOVINE 0.2 MG TAB PO PRN (10:00)
[2020-01-11] MEDS ORDERED: Rho(D) IG (HUMAN) 300 MCG SYR IM PRN (10:00)
[2020-01-11] MEDS ORDERED: ONDANSETRON 4 MG (ODT) TAB PO PRN (10:00)
--- NOTE | 2020-01-11 10:03 | P.BOP ---
Preoperative diagnosis: 38wk , SPROM Postoperative diagnosis: Same, delivered Primary procedure: SCVD viable female infant Secondary procedure: repair second degree ml laceration Anesthesia: epidural Complications: None Transferred to: Other (273) Condition: Good
[2020-01-11] MEDS: IBUPROFEN 600 MG TAB PO PRN ×2 (13:45→20:30)
[2020-01-11] MEDS ORDERED: Ringers Lactate 3,000 ML IV ONE (15:37)
[2020-01-12 00:48] LABS: RPR (Rapid Plasma Reagin) NON-REACT (NON-REACT)
--- NOTE | 2020-01-12 08:32 | OP ---
Surgeon: Andrea Townsend MD Ms. Anaya is a 29-year-old female, 6, para 0-1-3-1, now at approximately 38 weeks' gestation followed through [facility]. She presents with rupture of membranes noted to be approxima tely 1 cm dilated with mild irregular contractions. She was admitted, begun on Pitocin augmentation of labor. She had a first stage of labor approximately 6 hours, second stage of labor 13 minutes. S he delivered by spontaneous controlled vaginal delivery a 6-pound 1-ounce female . After delay ed cord clamping, the was placed on mother's upper abdomen. Cord blood obtained. Placenta wa s spontaneously expelled and appeared to be intact. She has suffered a second-degree midline lacerat ion, which was repaired in the usual fashion with 3-0 Vicryl suture. She received 1 mg of Stadol and 1 dose of Phenergan for analgesia prior to placement of epidural catheter. Quantitative blood loss was 172 mL. DK/DAVID Voice ID: [id number] Report ID: [id number]
--- NOTE | 2020-01-12 10:32 | DS ---
Hospital Discharge Diagnoses: 1.38 week , delivered. 2.Iron-deficiency anemia. Complications: None. Procedures: Pitocin augmentation of labor, placement of epidural catheter, spontaneous controlled va ginal delivery of viable female , repair of second-degree perineal laceration. Hospital Course: The patient is a 29-year-old female, admitted with spontaneous rupture of membranes and not in active labor. She had an uneventful labor and delivery of a 6 pounds 1-ounce f emale infant, 8 and 9. She was dismissed on the first day, ambulatory, on a select diet with routine postvaginal delivery activity restrictions, to be seen back through the [facility] . She was dismissed with prescription for Tylenol No. 3 #5 tablets, to continue taking her vitamins, to take an iron supplement also for the next month or 2. Lab work obtained during this hos pital stay included an admission hemoglobin and hematocrit of 10.3 and 29.9, dismissal hematocrit of 27.0. She had a positive urine test for marijuana. Nonreactive RPR. Cord blood type was Rh negativ e, so she did not receive RhoGAM. DK/DAVID Voice ID: [id number] Report ID: [id number]
[2020-01-12] MEDS: IBUPROFEN 600 MG TAB PO PRN (12:19)
[2020-01-13 02:08] LABS: HBsAG Nonreactive (Nonreactive)
[2020-01-13 12:03] VITALS: BP 104/66; TEMP 97.8
== END 2020-01-13 15:35 | disposition home or self-care (01) | DRG 807 ==
LOC: L&D 02:16 → 2ND-WC 02:58
PROVIDERS: ADMIT Specialist; ATTEND Specialist
PROC: 0KQM0ZZ Repair Perineum Muscle, Open Approach (ICD-10-PCS; principal; 2020-01-11)
PROC: 10E0XZZ Delivery of Products of Conception, External Approach (ICD-10-PCS; 2020-01-11)
DX: O99.02 Anemia complicating childbirth (principal); Z37.0 Single live birth; D64.9 Anemia, unspecified; O70.1 Second degree perineal laceration during delivery; Z3A.38 38 weeks gestation of pregnancy
CPT/HCPCS: 36415; 80307; 85014; 85025; 86592; 86850; 86870; 86901; 87340; J0595; J2550; J2590; J2795; J3010; J7120